=== PATIENT | male | born 1950 | race Caucasian/White ===

== ENCOUNTER 2017-05-19 10:49 | Day surgery (SDC) | payer MEDICARE, OTHER ==
[~2017-05-19 10:49] MED LIST: RINGER'S SOLUTION,LACTATED 1,000 ML IV PRN; ceFAZolin SODIUM 2 GM in DEXTROSE 5 % IN WATER 50 ML IV PRN
[2017-05-19] MEDS ORDERED: RINGER'S SOLUTION,LACTATED 1,000 ML IV ONE ×2 (11:35→13:45)
[2017-05-19] MEDS ORDERED: BUPIVACAINE HCL 50 ML VIAL IJ ONE ×2 (12:58)
[2017-05-19 15:39] VITALS: BP 162/75
== END 2017-05-19 10:50 | disposition home or self-care (01) ==
LOC: AMB 10:49
PROVIDERS: ATTEND Urology
PROC: 0VBG0ZZ Excision of Left Spermatic Cord, Open Approach (ICD-10-PCS; principal; 2017-05-19 12:00)
DX: N43.3 Hydrocele, unspecified (principal); R35.1 Nocturia; E66.9 Obesity, unspecified; Z68.28 Body mass index [BMI] 28.0-28.9, adult

== ENCOUNTER 2018-12-28 14:51 | Observation (INO) ==
[2018-12-28 15:34] LABS: Mean Cell Volume 92.4 fl (78-100); Mean Corpuscular Hemoglobin 31.5 pg (27-31); Mean Corpuscular Hgb Conc 34.1 g/dl (32-36); Mean Platelet Volume 10.2 fl (8-11.3); Neutrophil % 65.2 % (42-75.0); Platelet Count 212 K/mm3 (150-450); Red Blood Count 2.51 M/mm3 (4.7-6.0); Red Cell Distribution Width 12.6 % (11.5-14.0); White Blood Count 6.2 K/mm3 (4.0-10.5)
[2018-12-28 15:35] LABS: Hematocrit 23.2 % (42.0-52.0); Hemoglobin 7.9 gm/dL (13.5-18.0)
[2018-12-28] MEDS ORDERED: PANTOPRAZOLE SODIUM 40 MG/100 ML PIGGYBACK IV ONE (15:38)
[2018-12-28 15:54] LABS: Blood Urea Nitrogen 69 mg/dL (6-23); Glucose * 149 mg/dL (70-110)
[2018-12-28 15:55] LABS: ALT 33 U/L (19-67); AST 18 U/L (0-48); Albumin * 3.8 gm/dl (3.4-5.0); Alkaline Phosphatase * 36 U/L (50-170); BNP * 113 pg/mL (5-350); Bilirubin, Total 0.4 mg/dL (0.0-1.1); Ca. Corrected For Albumin 8.8 mg/dL (8.4-10.2); Carbon Dioxide 25.1 mmol/L (24-32.6); Chloride 97 mmol/L (97-106); Potassium 4.1 mmol/L (3.4-4.6); Sodium 132 mmol/L (132-142); Total Protein 6.3 gm/dL (6.2-8.2); Troponin I Less than 0.017 ng/mL (0.00-0.10)
[2018-12-28] MEDS ORDERED: NORMAL SALINE 1,000 ML IV ONE (15:56)
[2018-12-28 16:07] LABS: Prothrombin Time (Patient) 10.7 Seconds (9.1-10.7)
[2018-12-28 16:10] LABS: INR 1.08 INR (0.92-1.08); Partial Thrombolplastin Time 24.7 Seconds (24-32)
--- NOTE | 2018-12-28 16:19 | ERNOTE ---
Dyspnea - Date Date of Service: 12/28/18 - General Presenting Symptoms: shortness of breath Time Seen by Provider: 12/28/18 15:10 Source: patient Exam Limitations: no limitations - Immun/Allergies/Home Medications Immunizations: IMMUNIZATION HX Immunizations Up to Date Yes History of Influenza Vaccine Yes Hx Pneumococcal Vaccination Yes Allergies/Adverse Reactions: Allergies Penicillins Allergy (Mild, Verified 05/19/17 11:17) Hives Home Medications: HOME MEDICATIONS Aspirin [Aspirin Enteric Coated] 81 mg PO DAILY 05/18/17 [Last Taken Unknown] Atenolol [Tenormin] 50 mg PO QPM 05/18/17 [Last Taken Unknown] Atenolol [Tenormin] 150 mg PO QAM 05/18/17 [Last Taken 05/19/17 08:00] Simvastatin [Zocor] 20 mg PO HS 05/18/17 [Last Taken Unknown] oxyCODONE HCL/ACETAMINOPHEN [Percocet 5 MG/325 MG] 1 - 2 tab PO Q4H PRN 05/18/17 [Last Taken Unknown] Lisinopril [Prinivil] 20 mg PO DAILY 12/28/18 [Last Taken Unknown] - History of Present Illness Narrative: Patient presents to the ED with progressive fatigue, neck pain into the jaw with exertion, SOB with exertion and generalized weakness with exertion. No Sx with rest. No fever. Black stool has been noted. No vomiting of blood. Has not seen anyone else for this. No active chest pain. No fever. No abdominal pain. No calf pain or leg swelling. Severity: moderate Treatment MDS RN: none Initiating event: Reports: none Frequency of episodes: Reports: no prior episodes Modifying Factors - (Improves): Reports: rest Modifying Factors (Worsens): Reports: other - exertion Associated Symptoms-Dyspnea: Reports: dizziness. Denies: fever/chills, wheezing Prior Treatment: Denies: recently seen Review of Systems - Review of Systems Constitutional: Absent: fever EYE: Present: no symptoms reported ENT: Absent: sore throat Respiratory: Present: shortness of breath Cardiology: Present: chest pain Gastrointestinal/Abdominal: Absent: abdominal pain Musculoskeletal: Present: back pain Skin: Absent: rash Neurological: Absent: numbness, tingling All Other Systems: All systems neg except as marked Medical History (Updated 12/28/18 @ 15:06 by Harsha To RN) BPH (benign prostatic hyperplasia) HLD (hyperlipidemia) HTN (hypertension) Surgical History: Surgical History (Updated 12/28/18 @ 15:07 by Harsha To RN) History of hip replacement Hx of heart artery stent Social History: Preferred Language Citizen Of [place] Smoking Status Never smoker Have you smoked in the past 12 No months Do you dip or chew tobacco No Abuse History No History of abuse Psych History No pertinent hx Alcohol Use occasionally Drug Use none No Social History Section defined Physical Exam - Physical Exam General Appearance: Present: alert, no apparent distress Head Exam: Present: normal inspection, no evidence of injury Eye Exam: Normal inspection: bilateral, PERRL: bilateral Ears, Nose, Throat: Present: normal ENT inspection Neck: Present: normal inspection Respiratory: Present: no respiratory distress, normal breath sounds, no accessory muscle use, lungs clear Cardiovascular/Chest: Present: regular rate, rhythm, normal peripheral pulses Gastrointestinal/Abdominal: Present: normal bowel sounds, nontender, nondistended, soft Rectal Exam: Present: other - giaiac positive stool Back Exam: Present: normal range of motion Extremity Exam: Present: normal inspection, no edema Neurological Exam: Present: alert, no motor/sensory deficits, building economist II-XII nml as tested Skin Exam: Present: normal color, warm/dry Progress - Results and Orders Patient's Lab Results:: I have reviewed the patient's lab results. - Vital Signs Patient's Vital Signs:: I have reviewed the patient's vital signs. Vital Signs: Vital Signs 12/28/18 14:53 12/28/18 15:32 12/28/18 15:53 Temperature 36.7 C Pulse Rate 85 85 78 Respiratory Rate 16 12 Blood Pressure 125/46 O2 Sat by Pulse Oximetry 98 98 - EKG EKG #1 EKG: NSR EKG read: Interp. by me EKG Comments: NSR rate 85. Non-specific, No STEMI noted. - X-Ray X-Ray #1 X-Ray: chest Interpretation: Interp. by me X-ray Comments: I reviewed official radiology report - Progress/Reassessment Chief Complaint: Dyspnea Progress Note-Subjective: 12/28/18 16:17 IV placed. Patient has symptoms c/w symptomatic anemia. Likely GI bleeding from stomach. 1st U PRBCs ordered. Protonix given. D/W Dr Peng and Dr Rainey. patient will be seen in ED by Gen Surg and admitted by Dr Castillo. I discussed this at length with the patient and questions answered. Departure Clinical Impression: Symptomatic anemia, GI bleeding - Departure Disposition: Still a patient Condition: Stable
--- NOTE | 2018-12-28 17:48 | CONS ---
[facility] - General Date of Service: 12/28/18 Narrative: GI bleed Source: patient, family Exam Limitations: no limitations - History of Present Illness Initial Comments: Justin is a pleasant 68-year-old gentleman who first noticed dark stools on Monday. He then had an even larger dark stool. He denies stomach pain. He has had some back pain. He takes a baby aspirin daily. He had a heart attack with stents placed when he was 54 years old. He has never had an EGD. He has never had ulcers. He denies nausea or vomiting. He believes he had a colonoscopy within the last 2 years and [facility]. He denies a family history of colon cancer. Timing/Duration: changing over time Severity: moderate Modifying Factors - (Worsens): Reports: other - None Modifying Factors - (Improves): Reports: other - None Associated Symptoms: malaise, shortness of breath, weakness Allergies/Adverse Reactions: Allergies Penicillins Allergy (Mild, Verified 12/28/18 17:33) Hives Home Medications: Home Medications Medication Instructions Recorded Last Taken Aspirin [Aspirin Enteric Coated] 81 mg PO DAILY 05/18/17 Unknown Atenolol [Tenormin] 50 mg PO QPM 05/18/17 Unknown Atenolol [Tenormin] 100 mg PO QAM 05/18/17 05/19/17 08:00 Simvastatin [Zocor] 20 mg PO HS 05/18/17 Unknown Lisinopril [Prinivil] 20 mg PO DAILY 12/28/18 Unknown Procedures Excision of Left Spermatic Cord, Open Approach (05/19/17) Review of Systems - Review of Systems Generalized/Overall Review: Present: Weakness, Malaise EENTM: Present: No Symptoms Reported Respiratory: Present: Shortness of Breath Cardiac: Present: No Symptoms Reported Abdominal: Present: Melena Genitourinary: Present: No Symptoms Reported Musculoskeletal: Present: Back Pain Neurological: Present: No Symptoms Reported Skin: Present: No Symptoms Reported Endocrine: Present: No Symptoms Reported Physical Examination - Exam Vital Signs: Vital Signs - Last Taken Temp 36.9 C 12/28/18 17:27 Pulse 69 12/28/18 17:27 Resp 16 12/28/18 17:27 BP 142/49 12/28/18 17:27 Pulse Ox 99 12/28/18 17:27 O2 Oxygen Delivery Method Room Air Constitutional: Present: Alert, Oriented x3, Cooperative ENT Exam: Present: hearing grossly normal Eye Exam: bilateral eye: normal inspection Neck: Present: supple Breasts: Present: Exam deferred Respiratory: Present: chest non-tender, lungs clear, normal breath sounds Cardiovascular/Chest: Present: regular rate, rhythm Abdomen: Present: Normal bowel sounds, soft, nontender /Rectal: Present: Exam deferred Extremity: Present: normal range of motion Skin Exam: Present: normal color Lymphatic: Present: no adenopathy Neurologic: Present: synchronous motor assembler II-XII nml as tested Appearance: Present: appropriate appearance Eye contact: Present: cooperative, good eye contact Thoughts: Present: normal thought pattern - Results and Findings: Lab/Microbiology results last 24 hrs: Abnormal/Pending Laboratory Last 24 HRS 12/28/18 12/28/18 12/28/18 15:45 15:42 15:26 RBC Hgb Hct MCH Lymphocytes # Anion Gap 14.0 H BUN 69 H Creatinine 1.77 H Est GFR (Non-Af Amer) 41 L BUN/Creatinine Ratio 39.0 H Random Glucose 149 H Alkaline Phosphatase 36 L Stool Occult Blood Positive H Crossmatch See Detail 12/28/18 15:26 RBC 2.51 L Hgb 7.9 L* Hct 23.2 L* MCH 31.5 H Lymphocytes # 1.44 L Anion Gap BUN Creatinine Est GFR (Non-Af Amer) BUN/Creatinine Ratio Random Glucose Alkaline Phosphatase Stool Occult Blood Crossmatch - Assessments/Findings (1) GI bleeding Problem: Acute (2) Symptomatic anemia Problem: Acute Plan - Plan Plan: We will plan to do an EGD tomorrow morning to evaluate. I discussed the case with Dr. Rainey. The patient is also in agreement. production support supervisor was notified and we will plan for 9:30 in the morning. Risks and benefits of the procedure were discussed with the patient and he would like to proceed. He will also be started on Protonix.
--- NOTE | 2018-12-28 18:18 | HP ---
Chief Complaint - Chief Complaint Date of Service: 12/28/18 Time of Service: 18:01 Chief Complaint: SOB, tarry stools History of Present Illness: 68-year-old male presented to the ER with 4 days worsening shortness of breath, chest pain, black tarry stools. He was found to be anemic with a hemoglobin of 7.9 and hematocrit of 23.2. He has no history of anemia. He has no history of previous GI bleed. He has recent colonoscopy few years ago where he had a couple polyps taken out but states that it was otherwise normal and he was told to have a repeat colonoscopy in a " couple years". He states that he has had black tarry stools for the last few days, with the worst one being this morning where it was large and very loose. Patient states he normally can walk a mile with minimal discomfort in his lower extremities from peripheral arterial disease but states over the last couple of days he can walk no more than 10-15 steps before he has to stop and catch his breath. Chest pain starts after activity, he has none at rest. He had a negative cardiac work-up in the ER with negative troponins and normal EKG. Patient has a history of hypertension and hyperlipidemia. Medical History (Updated 12/28/18 @ 17:33 by Delia Fleming RN) BPH (benign prostatic hyperplasia) HLD (hyperlipidemia) HTN (hypertension) Testicular cyst removed Surgical History: Surgical History (Updated 12/28/18 @ 15:07 by Harsha To RN) History of hip replacement Hx of heart artery stent Family History: Family History (Last Reviewed 12/28/18 @ 17:34 by Delia Fleming RN) Father PAD (peripheral artery disease) Heart disease Social History: Patient Lives/Resources With Spouse Utilized Occupation retired Preferred Language Wol[place] Do you have any yazidism or Yes: Prestbyterian cultural preference? Smoking Status Former smoker Have you smoked in the past 12 No months Do you dip or chew tobacco No Abuse History No History of abuse Psych History No pertinent hx Alcohol Use occasionally Drug Use none No Social History Section defined Review Of Systems (GEN) - Review of Systems Generalized/Overall Review: Present: Fatigue. Absent: Chills, Fever EENTM: Present: No Symptoms Reported Respiratory: Present: Shortness of Breath. Absent: Cough, Wheezing Cardiac: Present: Chest Pain - With activity. Absent: Edema, Palpitations Abdominal: Present: Melena. Absent: Nausea, Vomiting Genitourinary: Present: No Symptoms Reported Musculoskeletal: Present: Back Pain Neurological: Present: No Symptoms Reported Skin: Present: No Symptoms Reported Endocrine: Present: No Symptoms Reported Immunizations: IMMUNIZATION HX Immunizations Up to Date Yes History of Influenza Vaccine Yes Hx Pneumococcal Vaccination Yes Allergies/Adverse Reactions: Allergies Allergy/AdvReac Type Severity Reaction Status Date / Time Penicillins Allergy Mild Hives Verified 12/28/18 17:33 Home Medications: HOME MEDICATIONS Aspirin [Aspirin Enteric Coated] 81 mg PO DAILY 05/18/17 [Last Taken Unknown] Atenolol [Tenormin] 50 mg PO QPM 05/18/17 [Last Taken Unknown] Atenolol [Tenormin] 100 mg PO QAM 05/18/17 [Last Taken 05/19/17 08:00] Simvastatin [Zocor] 20 mg PO HS 05/18/17 [Last Taken Unknown] Lisinopril [Prinivil] 20 mg PO DAILY 12/28/18 [Last Taken Unknown] Exam - Exam Vital Signs: Vital Signs - Last Taken Temp 36.8 C 12/28/18 17:36 Pulse 66 12/28/18 17:36 Resp 16 12/28/18 17:36 BP 158/62 H 12/28/18 17:36 Pulse Ox 100 12/28/18 17:36 Constitutional: Present: Alert, Oriented x3, Cooperative, Well developed, No distress ENT Exam: Present: hearing grossly normal. Absent: nasal congestion, nasal drainage Eye Exam: bilateral eye: normal inspection Neck: Present: full range of motion, supple Back Exam: Present: muscle spasm Respiratory: Present: lungs clear, no respiratory distress Cardiovascular/Chest: Present: normal peripheral pulses, regular rate, rhythm, no edema Abdomen: Present: Normal bowel sounds, soft, nontender, nondistended /Rectal: Present: Exam deferred Skin Exam: Present: normal color, warm/dry Neurologic: Present: alert, oriented x 3. Absent: dizzy/light-headedness Appearance: Present: appropriate appearance, appropriate insight Eye contact: Present: cooperative, good eye contact Thoughts: Present: normal thought pattern, normal mood /affect Diagnostic Studies: Abnormal Lab Results 12/28/18 12/28/18 12/28/18 Range/Units 15:26 15:26 15:42 RBC 2.51 L (4.7-6.0) M/mm3 Hgb 7.9 L* (13.5-18.0) gm/dL Hct 23.2 L* (42.0-52.0) % MCH 31.5 H (27-31) pg Lymphocytes # 1.44 L (1.5-3.5) k/mm3 Anion Gap 14.0 H (6.8-13.8) mmol/L BUN 69 H (6-23) mg/dL Creatinine 1.77 H (0.4-1.4) mg/dL Est GFR (Non-Af Amer) 41 L (60-130) mL/min BUN/Creatinine Ratio 39.0 H (9.0-21.6) Random Glucose 149 H (70-110) mg/dL Alkaline Phosphatase 36 L (50-170) U/L Stool Occult Blood Positive H Crossmatch 12/28/18 Range/Units 15:45 RBC (4.7-6.0) M/mm3 Hgb (13.5-18.0) gm/dL Hct (42.0-52.0) % MCH (27-31) pg Lymphocytes # (1.5-3.5) k/mm3 Anion Gap (6.8-13.8) mmol/L BUN (6-23) mg/dL Creatinine (0.4-1.4) mg/dL Est GFR (Non-Af Amer) (60-130) mL/min BUN/Creatinine Ratio (9.0-21.6) Random Glucose (70-110) mg/dL Alkaline Phosphatase (50-170) U/L Stool Occult Blood Crossmatch See Detail Laboratory Results WBC 6.2 K/mm3 (4.0-10.5) 12/28/18 15:26 RBC 2.51 M/mm3 (4.7-6.0) L 12/28/18 15:26 Hgb 7.9 gm/dL (13.5-18.0) L* 12/28/18 15:26 Hct 23.2 % (42.0-52.0) L* 12/28/18 15:26 MCV 92.4 fl (78-100) 12/28/18 15:26 MCH 31.5 pg (27-31) H 12/28/18 15:26 MCHC 34.1 g/dl (32-36) 12/28/18 15: RDW 12.6 % (11.5-14.0) 12/28/18 15: Plt Count 212 K/mm3 (150-450) 12/28/18 15: MPV 10.2 fl (8-11.3) 12/28/18 15: Immature Gran % (Auto) 0.30 % (0.001-0.429) 12/28/18 15: Immature Gran # (Auto) 0.02 K/mm3 (0.000-0.0310) 12/28/18 15: 65.2 % (42-75.0) 12/28/18 15: 23.4 % (20-51) 12/28/18 15: 8.5 % (0.0-9) 12/28/18 15: 2.1 % (0.0-3.0) 12/28/18: 0.5 % (0.0-1.0) 12/28/18: Nucleated RBC % 0.0 k/mm3 (0-1) 12/28/18 15: 4.0 K/mm3 (1.3-6.0) 12/28/18 15: 1.44 k/mm3 (1.5-3.5) L 12/28/18 15: 0.5 k/mm3 (0.0-1.0) 12/28/18: 0.1 k/mm3 (0.0-0.7) 12/28/18: Absolute Basophils 0.0 k/mm3 (0.0-0.1) 12/28/18 15: PT 10.7 Seconds (9.1-10.7) 12/28/18 15: INR (Anticoag Therapy) 1.08 INR (0.92-1.08) 12/28/18: PTT (Kim) 24.7 Seconds (24-32) 12/28/18 15: Sodium 132 mmol/L (132-142) 12/28/18 15: 133 mmol/L (130-142) 12/28/18 15: Potassium 4.1 mmol/L (3.4-4.6) 12/28/18 15:26 Chloride 97 mmol/L (97-106) 12/28/18 15:26 Carbon Dioxide 25.1 mmol/L (24-32.6) 12/28/18 15:26 14.0 mmol/L (6.8-13.8) H 12/28/18 15:26 BUN 69 mg/dL (6-23) H 12/28/18 15:26 1.77 mg/dL (0.4-1.4) H 12/28/18 15:26 Est GFR (Non-Af Amer) 41 mL/min (60-130) L 12/28/18 15:26 39.0 (9.0-21.6) H 12/28/18 15:26 149 mg/dL (70-110) H 12/28/18 15:26 Calcium 9.0 mg/dL (7.9-10.9) 12/28/18 15:26 Calcium Adj for Albumin 8.8 mg/dL (8.4-10.2) 12/28/18 15:26 0.4 mg/dL (0.0-1.1) 12/28/18 15:26 AST 18 U/L (0-48) 12/28/18 15:26 ALT 33 U/L (19-67) 12/28/18 15:26 36 U/L (50-170) L 12/28/18 15:26 Less than 0.017 ng/mL (0.00-0.10) 12/28/18 15:26 B-Natriuretic Peptide 113 pg/mL (5-350) 12/28/18 15:26 6.3 gm/dL (6.2-8.2) 12/28/18 15:26 3.8 gm/dl (3.4-5.0) 12/28/18 15:26 Positive H 12/28/18 15:42 Blood Type A Positive 12/28/18 15:45 Antibody Screen Negative 12/28/18 15:45 Crossmatch See Detail 12/28/18 15:45 Assessment/Plan - Narrative Narrative: Patient brought in in observation for upper GI bleed. Dr. Garcia was consulted from the ER, her plan is to perform EGD tomorrow morning. Patient currently n.p.o. other than sips and chips in a.m. meds. We will start him on Protonix. Patient currently being transfused with a unit of blood, repeat H&H 2 hours posttransfusion. Currently blood pressure and heart rate are within normal limits. Continue blood pressure meds in the a.m. if blood pressure still stable. Nurse will call with any questions or concerns - Assessment/Plan (1) Upper GI bleed Problem: Acute (2) Hypertension Problem: Acute (3) Hyperlipidemia Problem: Acute (4) Symptomatic anemia Problem: Acute
[2018-12-28] MEDS ORDERED: PANTOPRAZOLE SODIUM 40 MG in NORMAL SALINE 100 ML IV SCH (18:45)
[2018-12-29] MEDS: PANTOPRAZOLE SODIUM 40 MG in NORMAL SALINE 100 ML IV SCH ×2 (05:42→17:37)
[2018-12-29 06:18] LABS: Mean Cell Volume 93.1 fl (78-100); Mean Corpuscular Hemoglobin 32.1 pg (27-31); Mean Corpuscular Hgb Conc 34.5 g/dl (32-36); Mean Platelet Volume 9.6 fl (8-11.3); Neutrophil # 2.2 K/mm3 (1.3-6.0); Neutrophil % 51.1 % (42-75.0); Platelet Count 147 K/mm3 (150-450); Red Blood Count 2.46 M/mm3 (4.7-6.0); Red Cell Distribution Width 13.1 % (11.5-14.0); White Blood Count 4.2 K/mm3 (4.0-10.5)
[2018-12-29 06:36] LABS: Hemoglobin 7.9 gm/dL (13.5-18.0)
[2018-12-29 06:37] LABS: Hematocrit 22.9 % (42.0-52.0)
[2018-12-29] MEDS: ATENOLOL 100 MG TABLET PO SCH ×2 (07:50→09:43)
--- NOTE | 2018-12-29 07:50 | ANES ---
Anesthesia Pre Procedure Eval Vitals/Labs: Last Vital Signs Temp 36.0 C 12/29/18 07:48 Pulse 69 12/29/18 06:28 Resp 18 12/29/18 06:28 BP 131/49 12/29/18 06:28 Pulse Ox 95 12/29/18 06:28 HOME MEDICATIONS Aspirin [Aspirin Enteric Coated] 81 mg PO DAILY 05/18/17 [Last Taken Unknown] Atenolol [Tenormin] 50 mg PO QPM 05/18/17 [Last Taken Unknown] Atenolol [Tenormin] 100 mg PO QAM 05/18/17 [Last Taken 05/19/17 08:00] Simvastatin [Zocor] 20 mg PO HS 05/18/17 [Last Taken Unknown] Lisinopril [Prinivil] 20 mg PO DAILY 12/28/18 [Last Taken Unknown] Allergies/Adverse Reactions: Allergies Allergy/AdvReac Type Severity Reaction Status Date / Time Penicillins Allergy Mild Hives Verified 12/28/18 17:33 - Planned Procedure Planned Procedure: EGD Medication List Reviewed:: Yes Allergies Verified: Yes Medical History (Updated 12/29/18 @ 07:49 by Volodymyr Stoll CRNA) BPH (benign prostatic hyperplasia) CAD (coronary artery disease) HLD (hyperlipidemia) HTN (hypertension) Testicular cyst removed Surgical History (Updated 12/28/18 @ 15:07 by Harsha To RN) History of hip replacement Hx of heart artery stent Family History (Last Reviewed 12/29/18 @ 07:48 by Volodymyr Stoll CRNA) Father PAD (peripheral artery disease) Heart disease - Family Anesthesia History Family History:: no untoward family reactions to anesthesia, no familial bleeding tendencies, no family history of clotting disorders, no family history of premature - Airway/Neck/Teeth Within Normal Limits:: Yes Teeth Condition: intact Denture Type: Full upper, Full lower Mallampatti Score: 1 Thyromental (T-M) distance: > 6 cm Mandibulo Hyoid distance: > 3 cm - Respiratory Respiratory Physical: lungs clear Smoking Status: Former smoker Discussed smoking cessation including day of surgery: No Sleep Apnea currently treated: No Sleep Apnea by current assessment: No Discussed Risks/Treatment of DAMASO: No - Cardiovascular Tolerate Activity: Fair Heart Sounds: S1 & S2, Regular - Anesthesia Assessment and Plan ASA Class: PS, III Anesthesia Type Plan: MAC
[2018-12-29] MEDS ORDERED: RINGER'S SOLUTION,LACTATED 1,000 ML IV ONE (10:00)
--- NOTE | 2018-12-29 10:29 | ANES ---
Post Anesthesia Discharge - Transfer of Care Transfer of Care handoff given to nurse: Yes - Discharge from PACU Discharge from PACU when meets criteria: Yes - Discharge to ASU Discharge to ASU-no complications/pt stable: Yes
--- NOTE | 2018-12-29 10:30 | ANES ---
Post Anesthesia Assessment - Vital Signs Vitals: Last Vital Signs Temp 35.9 C L 12/29/18 10:23 Pulse 74 12/29/18 10:23 Resp 16 12/29/18 10:23 BP 122/67 12/29/18 10:23 Pulse Ox 97 12/29/18 10:23 Airway Patency: Normal - Mental Status Level Of Consciousness: Awake - Pain Level Pain Score: 0 - N/V Assessment Nausea/Vomiting Presence: None Dehydration:: No
--- NOTE | 2018-12-29 10:36 | OR ---
Operative Report - Dictated Report Narrative: Date of Service: 12/29/18 Procedure: EGD with biopsy, and endoscopic clipping Pre-procedure diagnosis: GI bleeding Post-procedure diagnosis: Duodenal ulcer, Schatzki ring Surgeon: Dr. Geneva Peng Anesthesia: MAC Indication for procedure: Justin is a pleasant 68-year-old gentleman who has a GI bleed. He has had melena and anemia. Description of procedure: After appropriate informed consent was obtained, patient was taken to the endoscopy suite placed in the left lateral decubitus position. Monitors were applied, appropriate sedation was achieved. A lubricated gastroscope was inserted and advanced into the second portion of the duodenum. The scope was slowly withdrawn, the duodenum showed an ulcer as well as duodenitis. The ulcer base was approximately 4 mm in size. There was no visible vessel. 2 clips were placed on the ulcer. There was no bleeding, for her after the clip placement. The scope was withdrawn to the antrum. An antral biopsy was taken. A biopsy for Amber was also taken. The scope was retroflexed, the stomach appeared normal. The body of the stomach also appeared normal. Scope was slowly withdrawn to the GE junction, the Z line appeared normal. At 38 cm a Schatzki's ring was present which was wide mouthed. The excess air was suctioned and the scope was slowly removed. Complications: none Specimens to pathology: antral biopsy, Amber Estimated blood loss: minimal Disposition: He should continue on Protonix, avoid NSAIDs, and go slow with his diet. If he has trouble with dysphagia in the future we could dilate his Schatzki's ring, but it appeared to be wide mouthed.
[2018-12-29] MEDS: LISINOPRIL 20 MG TABLET PO SCH (10:49)
--- NOTE | 2018-12-29 12:38 | PN ---
Subjective - Date and Time Seen Date: 12/29/18 Time: 12:46 Subjective Narrative: Patient did well overnight. No acute events. Patient states he feels better, denies dizziness or shortness of breath. Hemogram came back with a hemoglobin of 7.9 and hematocrit of 22.9. Otherwise his vitals been stable. Plan is for EGD this morning with Dr. Peng Objective - Review of Systems Generalized/Overall Review: Denies: Weakness, Chills, Fever EENTM: Reports: No Symptoms Reported Respiratory: Reports: No Symptoms Reported Cardiac: Reports: No Symptoms Reported Abdominal: Denies: Abdominal Pain, Diarrhea, Melena, Bright blood from rectum Genitourinary Symptoms: Reports: No Symptoms Reported Musculoskeletal Complaints: Reports: No Symptoms Reported Neurological: Reports: No Symptoms Reported Skin: Reports: No Symptoms Reported Endocrine: Reports: No Symptoms Reported - Vitals Vitals: Last Vital Signs Temp 35.9 C L 12/29/18 10:23 Pulse 65 12/29/18 10:49 Resp 16 12/29/18 10:23 BP 137/63 12/29/18 10:49 Pulse Ox 97 12/29/18 10:23 - Abnormal Lab Findings Abnormal Lab Findings: Abnormal Lab Results 12/28/18 12/28/18 12/28/18 Range/Units 15:26 15:26 15:42 RBC 2.51 L (4.7-6.0) M/mm3 Hgb 7.9 L* (13.5-18.0) gm/dL Hct 23.2 L* (42.0-52.0) % MCH 31.5 H (27-31) pg Plt Count (150-450) K/mm3 Monocytes % (0.0-9) % Eosinophils % (0.0-3.0) % Lymphocytes # 1.44 L (1.5-3.5) k/mm3 Anion Gap 14.0 H (6.8-13.8) mmol/L BUN 69 H (6-23) mg/dL Creatinine 1.77 H (0.4-1.4) mg/dL Est GFR (Non-Af Amer) 41 L (60-130) mL/min BUN/Creatinine Ratio 39.0 H (9.0-21.6) Random Glucose 149 H (70-110) mg/dL Alkaline Phosphatase 36 L (50-170) U/L Stool Occult Blood Positive H Crossmatch 12/28/18 12/29/18 Range/Units 15:45 06:00 RBC 2.46 L (4.7-6.0) M/mm3 Hgb 7.9 L* (13.5-18.0) gm/dL Hct 22.9 L* (42.0-52.0) % MCH 32.1 H (27-31) pg Plt Count 147 L (150-450) K/mm3 Monocytes % 9.5 H (0.0-9) % Eosinophils % 3.3 H (0.0-3.0) % Lymphocytes # 1.48 L (1.5-3.5) k/mm3 Anion Gap (6.8-13.8) mmol/L BUN (6-23) mg/dL Creatinine (0.4-1.4) mg/dL Est GFR (Non-Af Amer) (60-130) mL/min BUN/Creatinine Ratio (9.0-21.6) Random Glucose (70-110) mg/dL Alkaline Phosphatase (50-170) U/L Stool Occult Blood Crossmatch See Detail - Exam Constitutional: Present: Alert, Oriented x3, Cooperative, Well developed ENT Exam: Present: hearing grossly normal. Absent: nasal congestion, nasal drainage Neck: Present: non-tender, supple Respiratory: Present: lungs clear, normal breath sounds Cardiovascular/Chest: Present: regular rate, rhythm, no murmur Abdomen: Present: Normal bowel sounds, soft, nontender /Rectal: Present: Exam deferred Skin Exam: Present: normal color, warm/dry Neurologic: Present: alert, oriented x 3. Absent: dizzy/light-headedness Appearance: Present: appropriate appearance, appropriate insight Eye contact: Present: cooperative, good eye contact Thoughts: Present: normal thought pattern, normal mood /affect Assessment/Plan Plan Narrative: Vital signs stable. Hemoglobin low again this morning, will transfuse 1 unit. Plan for EGD later this morning with Dr. Peng to evaluate for upper GI bleed. Overall patient clinically stable, vital signs stable. Awaiting Dr. Peng's recommendations following procedure. - Problems/Diagnosis (1) Upper GI bleed Problem: Acute (2) Hypertension Problem: Acute (3) Hyperlipidemia Problem: Acute (4) Symptomatic anemia Problem: Acute
[2018-12-29 12:55] LABS: Hemoglobin 9.1 gm/dL (13.5-18.0); Mean Cell Volume 93.1 fl (78-100); Mean Corpuscular Hemoglobin 31.4 pg (27-31); Mean Corpuscular Hgb Conc 33.7 g/dl (32-36); Mean Platelet Volume 9.4 fl (8-11.3); Platelet Count 168 K/mm3 (150-450); Red Cell Distribution Width 14.1 % (11.5-14.0); White Blood Count 5.1 K/mm3 (4.0-10.5)
[2018-12-29] MEDS ORDERED: ATENOLOL 50 MG TABLET PO SCH (17:00)
[2018-12-30] MEDS: PANTOPRAZOLE SODIUM 40 MG in NORMAL SALINE 100 ML IV SCH (07:22)
[2018-12-30] MEDS: LISINOPRIL 20 MG TABLET PO SCH (08:58)
[2018-12-30] MEDS: ATENOLOL 100 MG TABLET PO SCH (08:58)
--- NOTE | 2018-12-30 09:44 | PN ---
Dictated Progress Note - Date and Time Seen: Date: 12/30/18 Time: 09:42 - Progress Note Narrative: Doing well, no abdominal pain, no bowel movement. No nausea or vomiting. Tolerating clears. Vital Signs - Last Taken Temp 37.0 C 12/30/18 06:58 Pulse 74 12/30/18 08:58 Resp 16 12/30/18 06:58 BP 137/60 12/30/18 08:58 Pulse Ox 97 12/30/18 06:58 Abnormal/Pending Laboratory Last 24 HRS 12/30/18 12/29/18 12/28/18 07:10 12:50 15:45 RBC 2.90 L Hgb 8.8 L 9.1 L Hct 27.0 L MCH 31.4 H RDW 14.1 H Crossmatch See Detail Nonlabored respirations Abdomen is soft, nondistended, nontender No acute distress, alert and oriented 3 Imp: Duodenal ulcer status post clipping Anemia Weakness Plan: Gradually advance diet and avoid hard foods Avoid NSAIDs and continue Protonix Thank you for allowing me to participate in the care of your patient Dr. Rainey
--- NOTE | 2018-12-30 12:04 | DS ---
(1) Upper GI bleed Problem: Resolved (2) Hypertension Problem: Chronic (3) Hyperlipidemia Problem: Chronic (4) Symptomatic anemia Problem: Acute Description of Stay: 68-year-old male brought to the ER following 3 days of black tarry stools, shortness of breath/dizziness, fatigue. Patient initial hemoglobin was 7.9. Dr. Peng of general surgery was consulted, she took him back day 2 of admission for EGD where she found a duodenal ulcer and clipped it. Hemoglobin since has remained stable, day of discharge was 8.8. Patient states he is feeling much better and is ready to be discharged home. His chronic medicines were continued, no changes made to them. His vital signs been stable including normal blood pressure, normal pulse, normal O2 sats. He will be sent home on Protonix for a month and advised to not eat anything rough that may dislodge the clips for the next week or 2. He is in agreement with the treatment plan, he will follow-up with me in 1 to 2 weeks here in the clinic. He knows to return back to the hospital if he develops any more dark stools or become symptomatically again. Procedures Performed: see notes below List Procedures: EGD with surgical clips placed on duodenal ulcer Results and Findings: Lab Pending Results 12/28/18 15:26: WBC 6.2, RBC 2.51 L, Hgb 7.9 L*, Hct 23.2 L*, MCV 92.4, MCH 31.5 H, MCHC 34.1, RDW 12.6, Plt Count 212, MPV 10.2, Immature Gran % (Auto) 0.30, Immature Gran # (Auto) 0.02, Neutrophils % 65.2, Lymphocytes % 23.4, Monocytes % 8.5, Eosinophils % 2.1, Basophils % 0.5, Nucleated RBC % 0.0, Neutrophils # 4.0, Lymphocytes # 1.44 L, Monocytes # 0.5, Eosinophils # 0.1, Absolute Basophils 0.0 12/28/18 15:26: Sodium 132, Plasma Sodium 133, Potassium 4.1, Chloride 97, Carbon Dioxide 25.1, Anion Gap 14.0 H, BUN 69 H, Creatinine 1.77 H, Est GFR (Non-Af Amer) 41 L, BUN/Creatinine Ratio 39.0 H, Random Glucose 149 H, Calcium 9.0, Calcium Adj for Albumin 8.8, Total Bilirubin 0.4, AST 18, ALT 33, Alkaline Phosphatase 36 L, Troponin I Less than 0.017, B-Natriuretic Peptide 113, Total Protein 6.3, Albumin 3.8 12/28/18 15:26: PT 10.7, INR (Anticoag Therapy) 1.08, PTT ([place]) 24.7 12/28/18 15:42: Stool Occult Blood Positive H 12/28/18 15:45: Blood Type A Positive, Antibody Screen Negative, Crossmatch See Detail 12/29/18 06:00: WBC 4.2 D, RBC 2.46 L, Hgb 7.9 L*, Hct 22.9 L*, MCV 93.1, MCH 32.1 H, MCHC 34.5, RDW 13.1, Plt Count 147 L, MPV 9.6, Immature Gran % (Auto) 0.20, Immature Gran # (Auto) 0.01, Neutrophils % 51.1, Lymphocytes % 35.2, Monocytes % 9.5 H, Eosinophils % 3.3 H, Basophils % 0.7, Nucleated RBC % 0.0, Neutrophils # 2.2, Lymphocytes # 1.48 L, Monocytes # 0.4, Eosinophils # 0.1, Absolute Basophils 0.0 12/29/18 12:50: WBC 5.1 D, RBC 2.90 L, Hgb 9.1 L, Hct 27.0 L, MCV 93.1, MCH 31.4 H, MCHC 33.7, RDW 14.1 H, Plt Count 168, MPV 9.4 12/30/18 07:10: Hgb 8.8 L Discharge Location: Home Disposition: Home self-care Condition: Good Discharge Activity: Activity as tolerated Discharge Diet: Low fat/chol Referrals: Ceferino Rainey DO [Staff Physician] - Two Weeks Additional Patient Instructions (free text): He should continue on Protonix, avoid NSAIDs, and go slow with his diet. Prescriptions (Any new or edited meds): Omeprazole 20 mg PO DAILY #30 tab Complete Home Medications List: Complete Home Medication List: Atenolol [Tenormin] 100 mg PO QAM 05/18/17 Simvastatin [Zocor] 20 mg PO HS 10/12/17 Lisinopril [Prinivil] 20 mg PO DAILY 12/28/18 Atenolol [Tenormin] 50 mg PO QPM tablet 12/30/18 Omeprazole 20 mg PO DAILY #30 tab.rap. 12/30/18
[2018-12-30 12:18] VITALS: BP 148/60
== END 2018-12-30 12:45 | disposition home or self-care (01) ==
LOC: MS 14:51 → ER 14:51 → MS 16:44
PROVIDERS: ADMIT Family Medicine; ATTEND Family Medicine
DX: K26.4 Chronic or unspecified duodenal ulcer with hemorrhage; E78.5 Hyperlipidemia, unspecified; D62 Acute posthemorrhagic anemia; I10 Essential (primary) hypertension; Z87.891 Personal history of nicotine dependence; K22.2 Esophageal obstruction; I25.2 Old myocardial infarction; K92.2 Gastrointestinal hemorrhage, unspecified
CPT/HCPCS: 36415; 36430; 71020; 71046; 80053; 82272; 83519; 83880; 84484; 85018; 85025; 85027; 85610; 85730; 86850; 87081; 88305; 88312; 88313; 93005; 96365; 96366; 99285; G0378; P9016

== ENCOUNTER 2019-11-26 08:33 | Inpatient (IN) ==
[2019-11-26] MEDS ORDERED: PANTOPRAZOLE SODIUM 40 MG/100 ML PIGGYBACK IV ONE ×5 (09:06→10:15)
[2019-11-26 09:27] LABS: Hematocrit 28.1 % (42.0-52.0); Hemoglobin 9.2 gm/dL (13.5-18.0); Mean Cell Volume 95.6 fl (78-100); Mean Corpuscular Hemoglobin 31.3 pg (27-31); Mean Corpuscular Hgb Conc 32.7 g/dl (32-36); Mean Platelet Volume 10.1 fl (8-11.3); Neutrophil # 5.2 K/mm3 (1.3-6.0); Neutrophil % 80.1 % (42-75.0); Platelet Count 176 K/mm3 (150-450); Red Blood Count 2.94 M/mm3 (4.7-6.0); Red Cell Distribution Width 14.3 % (11.5-14.0); White Blood Count 6.5 K/mm3 (4.0-10.5)
--- NOTE | 2019-11-26 09:32 | ERNOTE ---
GI Bleeding/Rectal Pain ER Date of Service: 11/26/19 Presenting Symptoms: dark/tarry stools Time Seen by Provider: 11/26/19 08:37 Source: patient Exam Limitations: no limitations Immunizations: IMMUNIZATION HX Immunizations Up to Date Yes History of Influenza Vaccine Yes Hx Pneumococcal Vaccination Yes Allergies/Adverse Reactions: Allergies Penicillins Allergy (Mild, Verified 11/26/19 08:43) Hives Home Medications: HOME MEDICATIONS aspirin 81 mg tablet,delayed release 81 mg PO DAILY 05/27/19 [Last Taken Unknown] diclofenac sodium 1 % topical gel 2 g TP QID #100 g 05/27/19 [Last Taken Unknown] lisinopril 20 mg tablet 20 mg PO DAILY #90 tab 07/22/19 [Last Taken Unknown] simvastatin 20 mg tablet 20 mg PO HS #30 tab 10/15/19 [Last Taken Unknown] meloxicam 15 mg tablet 15 mg PO DAILY #30 tab 10/21/19 [Last Taken Unknown] atenolol 100 mg tablet 150 mg PO .COMPLEX 90 Days #135 tab 11/18/19 [Last Taken Unknown] Narrative: 69-year-old male presents for blood in stool. He reports that he has had black tarry stools for the past 3 to 4 days. Last night he noticed stomach discomfort. The pain was crampy in nature. There is moderate intensity, 7 out of 10. There is no intensifying factors that he noted. The pain was relieved after he had a bowel movement. This morning he noted multiple red tarry/black tarry bowel movements. 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 His pain last night did not radiate anywhere and is constant epigastric pain. He reports his last oral intake was around 11:00pm and consisted of hotdogs and peanut butter crackers. He has a pertinent past medical history of previous ulcers. He was seen approximately 1 year ago had endoscopy done at that time notable for 2 bleeding ulcers which required clipping. He was also noted to have Schatzki rings at that time. He was started on Protonix at that time however this was not continued. He has not had any recent trauma to abdominal cavity. He denies any other symptoms. During this current COVID-19 pandemic, he denies any recent fevers colds coughs congestions recent travels or ill contacts. He denies any current shortness of breath. He was recently started on meloxicam, 15 mg daily for the past month secondary t o left knee pain. He denies any other recent changes in medications. Timing: constant, getting worse Quality/Severity: Present: moderate - Pain is now resolved. Nausea/Vomiting: Present: blood, coffee grounds Abdominal Pain: Present: epigastric Associated Symptoms: Reports: maroon stools, black stools, tarry stools, diarrhea. Denies: constipation/hard stools, back pain, fainting, dizziness, light headedness, rectal pain Review of Systems - Narrative Narrative: REVIEW OF SYSTEMS GENERAL: Negative for any nausea, vomiting, fevers, chills, or weight loss. HEENT: Negative for sore throats, congestion, changes in vision, changes in hearing, CARDIAC: Negative for any chest pain, dyspnea, or palpitations. PULMONARY: Negative for any shortness of breath, cough, or wheezing. GASTROINTESTINAL: Negative for any nausea, vomiting, constipation, positive for blood per stool, diarrhea GENITOURINARY: Negative for any dysuria, changes in urine output. INTEGUMENTARY: Negative for any rashes. NEUROLOGIC: Negative for changes in vision or headaches. RHEUMATOLOGIC: Negative for any joint pains, Medical History (Last Reviewed 11/26/19 @ 09:21 by Alberto Ramos MD) BPH (benign prostatic hyperplasia) CAD (coronary artery disease) HLD (hyperlipidemia) HTN (hypertension) Testicular cyst removed Surgical History: Surgical History (Last Reviewed 11/26/19 @ 09:21 by Alberto Ramos MD) History of hip replacement Hx of heart artery stent Family History: Family History (Last Reviewed 11/26/19 @ 09:21 by Alberto Ramos MD) Father Heart disease PAD (peripheral artery disease) Social History: (Last Reviewed 11/26/19 @ 09:21 by Alberto Ramos MD) Tobacco: Smoking Status: Former smoker Physical Exam - Physical Exam General Appearance: Present: wd/wn, alert, no apparent distress Eye Exam: Normal inspection: bilateral Ears, Nose, Throat: Present: normal ENT inspection Neck: Present: normal inspection Respiratory: Present: no respiratory distress, normal breath sounds Cardiovascular/Chest: Present: regular rate, rhythm, no murmur, normal peripheral pulses Gastrointestinal/Abdominal: Present: normal bowel sounds, nontender, nondistended, soft, no organomegaly Rectal Exam: Present: nontender, normal rectal tone, black stool, blood-streaked stool. Absent: hemorrhoids Extremity Exam: Present: normal inspection, pedal edema - Mild pedal edema on the left lower extremity. Neurological Exam: Present: alert, normal mood/affect Skin Exam: Present: normal color, warm/dry. Absent: cyanosis, pallor Progress - Date and Time Seen: Date and Time: 11/26/19 09:23 69-year-old male with a pertinent past medical history of previous GI bleeds presents with blood per rectum. He reports stomach discomfort yesterday night that is since self resolved. Physical exam was notable for copious amounts of dark red blood per rectum on exam without signs of hemorrhoids. Patient had no physical exam findings suggestive of profound anemia, conjunctive normal in color, vital signs within normal limits, pulse ox variation 98% on room air. Labs pending, will start Protonix, [place] bleeding score pending lab results. Patient will most likely need to be placed in observation for further monitoring and consideration of GI/surgical consult. 11/26/19 11:00 Patient noted to have elevated potassium 5.3. BMP will be repeated, while waiting EKG shows no widening of the QRS, possible slight increased T waves in V2 V3, and he was given albuterol nebulizer treatment. Case was discussed with Dr. Rainey and pt was accepted for further monitoring in observation with telemetry. 11/26/19 11:43 Results of repeat BMP was notable for elevated K of 5.9. The lab draw was done after his albuterol treatment. The results of the lab work returned after Pt had been moved to the Obs unit and was no longer in the ED. I called and discussed the hyperkalemia with Dr Rainey. I shared with Dr Rainey the only treatment he received in the ED was the albuterol. We briefly discussed the EKG findings. We discussed he had not been given kayexalate, calcium, insulin or lasix. Additional treatment was being held until the repeat lab work returned to confirm the findings. This was appropriate given the EKG findings and patients overall stability. Dr Rainey stated he would place orders for further treatment of patients hyperkalemia. 11/26/19 12:03 - Results and Orders Patient's Lab Results:: I have reviewed the patient's lab results. - Vital Signs Patient's Vital Signs:: I have reviewed the patient's vital signs. Vital Signs: Vital Signs 11/26/19 08:38 Temperature 36.7 C Pulse Rate 87 Respiratory Rate 18 O2 Sat by Pulse Oximetry 97 - Progress/Reassessment Chief Complaint: GI Bleed Progress:: Unchanged - Transfer of Care Pending Results: Labs Expected Disposition: Admit Departure Clinical Impression: Hyperkalemia, Acute kidney injury GI bleed Qualifiers: GI bleed type/associated pathology: unspecified gastrointestinal hemorrhage type Qualified Code(s): K92.2 - Gastrointestinal hemorrhage, unspecified - Departure Disposition: Still a patient Condition: Stable
[2019-11-26 09:35] LABS: Prothrombin Time (Patient) 11.4 Seconds (9.1-10.7)
[2019-11-26 09:37] LABS: INR 1.16 INR (0.92-1.08); Partial Thrombolplastin Time 25.3 Seconds (24-32)
[2019-11-26 09:42] LABS: Albumin * 3.4 gm/dl (3.4-5.0); Anion Gap 17.1 mmol/L (6.8-13.8); BUN/Creatinine Ratio 36.1 (9.0-21.6); Bilirubin, Total 0.4 mg/dL (0.0-1.1); Ca. Corrected For Albumin 8.4 mg/dL (8.4-10.2); Calcium * 8.2 mg/dL (7.9-10.9); Carbon Dioxide 23.2 mmol/L (24-32.6); Potassium 5.3 mmol/L (3.4-4.6); Total Protein 6.1 gm/dL (6.2-8.2)
[2019-11-26] MEDS ORDERED: ALBUTEROL SULFATE 2.5 MG/0.5 ML VIAL.NEB IH ONE (10:24)
[2019-11-26 10:53] LABS: Anion Gap 13.8 mmol/L (6.8-13.8); BUN/Creatinine Ratio 41.1 (9.0-21.6); Calcium * 8.2 mg/dL (7.9-10.9); Carbon Dioxide 24.1 mmol/L (24-32.6); Estimated Creat Clear 54.3; Potassium 5.9 mmol/L (3.4-4.6)
[2019-11-26] MEDS ORDERED: DEXTROSE 50%-WATER 50 ML SYRG IV ONE ×2 (13:44→16:58)
[2019-11-26] MEDS ORDERED: INSULIN REGULAR, HUMAN 100 UNITS/ML VIAL IV ONE ×2 (13:49→14:30)
[2019-11-26] MEDS ORDERED: DICLOFENAC SODIUM 100 APPL TUBE TP SCH (17:00)
[2019-11-26 17:07] LABS: Anion Gap 13.5 mmol/L (6.8-13.8); BUN/Creatinine Ratio 38.1 (9.0-21.6); Calcium * 8.1 mg/dL (7.9-10.9); Carbon Dioxide 25.9 mmol/L (24-32.6); Estimated Creat Clear 53.5; Potassium 4.4 mmol/L (3.4-4.6)
[2019-11-26] MEDS ORDERED: DICLOFENAC SODIUM 100 APPL TUBE TP PRN (17:33)
[2019-11-26] MEDS: ATENOLOL 50 MG TABLET PO SCH (17:34)
[2019-11-26 20:35] LABS: Hematocrit 26.9 % (42.0-52.0); Mean Cell Volume 94.4 fl (78-100); Mean Corpuscular Hemoglobin 31.6 pg (27-31); Mean Corpuscular Hgb Conc 33.5 g/dl (32-36); Mean Platelet Volume 10.3 fl (8-11.3); Platelet Count 198 K/mm3 (150-450); Red Blood Count 2.85 M/mm3 (4.7-6.0); Red Cell Distribution Width 14.4 % (11.5-14.0); White Blood Count 7.4 K/mm3 (4.0-10.5)
[2019-11-26] MEDS: SIMVASTATIN 20 MG TABLET PO SCH (20:39)
[2019-11-26] MEDS: LISINOPRIL 20 MG TABLET PO SCH (20:39)
[2019-11-26 20:41] LABS: Anion Gap 15.9 mmol/L (6.8-13.8); Calcium * 8.3 mg/dL (7.9-10.9); Carbon Dioxide 24.3 mmol/L (24-32.6); Estimated Creat Clear 50.6; Potassium 4.2 mmol/L (3.4-4.6)
[2019-11-27 07:01] LABS: Mean Cell Volume 94.5 fl (78-100); Mean Corpuscular Hemoglobin 31.5 pg (27-31); Mean Corpuscular Hgb Conc 33.3 g/dl (32-36); Mean Platelet Volume 10.3 fl (8-11.3); Neutrophil # 3.4 K/mm3 (1.3-6.0); Neutrophil % 58.8 % (42-75.0); Platelet Count 178 K/mm3 (150-450); Red Blood Count 2.38 M/mm3 (4.7-6.0); Red Cell Distribution Width 14.7 % (11.5-14.0); White Blood Count 5.7 K/mm3 (4.0-10.5)
[2019-11-27 07:09] LABS: Anion Gap 13.4 mmol/L (6.8-13.8); Carbon Dioxide 24.8 mmol/L (24-32.6); Potassium 4.2 mmol/L (3.4-4.6)
[2019-11-27 07:26] LABS: Hematocrit 22.5 % (42.0-52.0); Hemoglobin 7.5 gm/dL (13.5-18.0)
[2019-11-27] MEDS: ATENOLOL 100 MG TABLET PO SCH (08:11)
[2019-11-27] MEDS ORDERED: NORMAL SALINE 1,000 ML IV ONE (09:42)
--- NOTE | 2019-11-27 10:09 | HP ---
Chief Complaint - Chief Complaint Date of Service: 11/26/19 Time of Service: 13:15 Chief Complaint: Abdominal pain, black stools History of Present Illness: 69-year-old male with history of previous GI bleed, currently on meloxicam who presented to the ER with 1 day of abdominal pain and 2 to 3 days of black thick stools, multiple bowel movements during this time. Prior to that change in stool, patient was feeling well and had no concerns or complaints. He was currently taken anti-inflammatory medication for knee pain which was working well for him. Initial hemoglobin was 9.2. He also had an elevated potassium at 5.3 which trended up to 5.9 while in the ER. He was given some albuterol to help lower his potassium. Initial vital signs were stable despite mildly elevated blood pressure. He was satting well on room air and had regular rate and rhythm. General surgery was consulted who wanted the patient to be observed to see if his hemoglobin stabilized after receiving Protonix in the ER. Due to risk of coronavirus, they were waiting to see if he needed to taken back for colonoscopy/endoscopy. Patient currently n.p.o. aside from medications. Patient no longer having abdominal pain at time of admission, states he feels well and has no urgency or frequency with his bowel movements currently. Patient admitted for observation. Medical History (Last Updated 11/26/19 @ 11:52 by April Oswald RN) Gastrointestinal bleed BPH (benign prostatic hyperplasia) CAD (coronary artery disease) HLD (hyperlipidemia) HTN (hypertension) Testicular cyst removed Surgical History: Surgical History (Last Updated 11/26/19 @ 11:53 by April Oswald RN) History of esophagogastroduodenoscopy (EGD) Onset Date: ~12/2018 History of hip replacement Hx of heart artery stent Family History: Family History (Last Reviewed 11/26/19 @ 11:53 by April Oswald RN) Father PAD (peripheral artery disease) Heart disease Social History: (Last Reviewed 11/26/19 @ 11:53 by April Oswald RN) Tobacco: Smoking Status: Former smoker Review Of Systems (GEN) - Review of Systems Generalized/Overall Review: Absent: Weakness, Chills, Fever EENTM: Present: No Symptoms Reported Respiratory: Present: No Symptoms Reported Cardiac: Present: No Symptoms Reported Abdominal: Present: Abdominal Pain, Melena. Absent: Nausea, Vomiting Genitourinary: Present: No Symptoms Reported Musculoskeletal: Present: Joint Pain - Right knee Neurological: Present: No Symptoms Reported Skin: Present: No Symptoms Reported Endocrine: Present: No Symptoms Reported Immunizations: IMMUNIZATION HX Immunizations Up to Date Yes History of Influenza Vaccine Yes Hx Pneumococcal Vaccination Yes Allergies/Adverse Reactions: Allergies Allergy/AdvReac Type Severity Reaction Status Date / Time Penicillins Allergy Mild Hives Verified 11/26/19 08:43 Home Medications: HOME MEDICATIONS aspirin 81 mg tablet,delayed release 81 mg PO DAILY 05/27/19 [Last Taken Unknown] diclofenac sodium 1 % topical gel 2 g TP QID #100 g 05/27/19 [Last Taken Unknown] simvastatin 20 mg tablet 20 mg PO HS #30 tab 10/15/19 [Last Taken Unknown] meloxicam 15 mg tablet 15 mg PO DAILY #30 tab 10/21/19 [Last Taken Unknown] Atenolol [Tenormin] 50 mg PO QPM 11/26/19 [Last Taken Unknown] Atenolol [Tenormin] 100 mg PO QAM 11/26/19 [Last Taken Unknown] Lisinopril 20 mg PO HS 11/26/19 [Last Taken Unknown] Exam - Exam Vital Signs: Vital Signs - Last Taken Temp 37.2 C 11/27/19 06:34 Pulse 77 11/27/19 08:11 Resp 14 11/27/19 06:34 BP 137/63 11/27/19 08:11 Pulse Ox 98 11/27/19 06:34 Constitutional: Present: Alert, Oriented x3, Cooperative, Well developed, Well nourished, No distress ENT Exam: Present: hearing grossly normal, pharynx normal. Absent: nasal congestion, nasal drainage Eye Exam: bilateral eye: normal inspection, EOMI Neck: Present: non-tender, supple Respiratory: Present: lungs clear, normal breath sounds Cardiovascular/Chest: Present: regular rate, rhythm, no murmur Abdomen: Present: Normal bowel sounds, soft, nontender, nondistended Skin Exam: Present: normal color Appearance: Present: appropriate appearance, appropriate insight Eye contact: Present: cooperative, good eye contact Thoughts: Present: normal thought pattern, normal mood /affect Diagnostic Studies: Abnormal Lab Results 11/26/19 11/26/19 11/26/19 Range/Units 09:18 09:18 09:18 RBC (4.7-6.0) M/mm3 Hgb (13.5-18.0) gm/dL Hct (42.0-52.0) % MCH (27-31) pg RDW (11.5-14.0) % Monocytes % (0.0-9) % Eosinophils % (0.0-3.0) % Lymphocytes # (1.5-3.5) k/mm3 PT 11.4 H (9.1-10.7) Seconds INR (Anticoag Therapy) 1.16 H (0.92-1.08) INR Potassium 5.3 H D (3.4-4.6) mmol/L Chloride 107 H (97-106) mmol/L Carbon Dioxide 23.2 L (24-32.6) mmol/L Anion Gap 17.1 H (6.8-13.8) mmol/L BUN 56 H (6-23) mg/dL Creatinine 1.55 H (0.4-1.4) mg/dL Est GFR (Non-Af Amer) 47 L (60-130) mL/min BUN/Creatinine Ratio 36.1 H (9.0-21.6) Random Glucose 128 H (70-110) mg/dL Alkaline Phosphatase 39 L (50-170) U/L Total Protein 6.1 L (6.2-8.2) gm/dL Crossmatch See Detail 11/26/19 11/26/19 11/26/19 Range/Units 10:39 16:53 20:28 RBC 2.85 L (4.7-6.0) M/mm3 Hgb 9.0 L (13.5-18.0) gm/dL Hct 26.9 L (42.0-52.0) % MCH 31.6 H (27-31) pg RDW 14.4 H (11.5-14.0) % Monocytes % (0.0-9) % Eosinophils % (0.0-3.0) % Lymphocytes # (1.5-3.5) k/mm3 PT (9.1-10.7) Seconds INR (Anticoag Therapy) (0.92-1.08) INR Potassium 5.9 H (3.4-4.6) mmol/L Chloride 108 H 107 H (97-106) mmol/L Carbon Dioxide (24-32.6) mmol/L Anion Gap (6.8-13.8) mmol/L BUN 58 H 53 H (6-23) mg/dL Creatinine 1.41 H (0.4-1.4) mg/dL Est GFR (Non-Af Amer) 53 L 54 L (60-130) mL/min BUN/Creatinine Ratio 41.1 H 38.1 H (9.0-21.6) Random Glucose 127 H (70-110) mg/dL Alkaline Phosphatase (50-170) U/L Total Protein (6.2-8.2) gm/dL Crossmatch 11/26/19 11/27/19 11/27/19 Range/Units 20:28 06:56 06:56 RBC 2.38 L (4.7-6.0) M/mm3 Hgb 7.5 L* (13.5-18.0) gm/dL Hct 22.5 L* (42.0-52.0) % MCH 31.5 H (27-31) pg RDW 14.7 H (11.5-14.0) % Monocytes % 10.5 H (0.0-9) % Eosinophils % 3.9 H (0.0-3.0) % Lymphocytes # 1.49 L (1.5-3.5) k/mm3 PT (9.1-10.7) Seconds INR (Anticoag Therapy) (0.92-1.08) INR Potassium (3.4-4.6) mmol/L Chloride 107 H (97-106) mmol/L Carbon Dioxide (24-32.6) mmol/L Anion Gap 15.9 H (6.8-13.8) mmol/L BUN 50 H 49 H (6-23) mg/dL Creatinine 1.47 H 1.69 H (0.4-1.4) mg/dL Est GFR (Non-Af Amer) 50 L 43 L (60-130) mL/min BUN/Creatinine Ratio 34.0 H 29.0 H (9.0-21.6) Random Glucose (70-110) mg/dL Alkaline Phosphatase (50-170) U/L Total Protein (6.2-8.2) gm/dL Crossmatch Laboratory Results WBC 5.7 K/mm3 (4.0-10.5) D 11/27/19 06:56 RBC 2.38 M/mm3 (4.7-6.0) L 11/27/19 06:56 Hgb 7.5 gm/dL (13.5-18.0) L* 11/27/19 06:56 Hct 22.5 % (42.0-52.0) L* 11/27/19 06:56 MCV 94.5 fl (78-100) 11/27/19 06:56 MCH 31.5 pg (27-31) H 11/27/19 06:56 MCHC 33.3 g/dl (32-36) 11/27/19 06:56 RDW 14.7 % (11.5-14.0) H 11/27/19 06:56 Plt Count 178 K/mm3 (150-450) 11/27/19 06:56 MPV 10.3 fl (8-11.3) 11/27/19 06:56 Immature Gran % (Auto) 0.20 % (0.001-0.429) 11/27/19 06:56 Immature Gran # (Auto) 0.01 K/mm3 (0.000-0.0310) 11/27/19 06:56 Neutrophils % 58.8 % (42-75.0) 11/27/19 06:56 Lymphocytes % 26.1 % (20-51) 11/27/19 06:56 Monocytes % 10.5 % (0.0-9) H 11/27/19 06:56 Eosinophils % 3.9 % (0.0-3.0) H 11/27/19 06:56 Basophils % 0.5 % (0.0-1.0) 11/27/19 06:56 Nucleated RBC % 0.0 k/mm3 (0-1) 11/27/19 06:56 Neutrophils # 3.4 K/mm3 (1.3-6.0) 11/27/19 06:56 Lymphocytes # 1.49 k/mm3 (1.5-3.5) L 11/27/19 06:56 Monocytes # 0.6 k/mm3 (0.0-1.0) 11/27/19 06:56 Eosinophils # 0.2 k/mm3 (0.0-0.7) 11/27/19 06:56 Absolute Basophils 0.0 k/mm3 (0.0-0.1) 11/27/19 06:56 PT 11.4 Seconds (9.1-10.7) H 11/26/19 09:18 INR (Anticoag Therapy) 1.16 INR (0.92-1.08) H 11/26/19 09:18 PTT (Villalba) 25.3 Seconds (24-32) 11/26/19 09:18 Sodium 141 mmol/L (132-142) 11/27/19 06:56 Plasma Sodium 141 mmol/L (130-142) 11/27/19 06:56 Potassium 4.2 mmol/L (3.4-4.6) 11/27/19 06:56 Chloride 107 mmol/L (97-106) H 11/27/19 06:56 Carbon Dioxide 24.8 mmol/L (24-32.6) 11/27/19 06:56 Anion Gap 13.4 mmol/L (6.8-13.8) 11/27/19 06:56 BUN 49 mg/dL (6-23) H 11/27/19 06:56 Creatinine 1.69 mg/dL (0.4-1.4) H 11/27/19 06:56 Est GFR (Non-Af Amer) 43 mL/min (60-130) L 11/27/19 06:56 BUN/Creatinine Ratio 29.0 (9.0-21.6) H 11/27/19 06:56 Random Glucose 108 mg/dL (70-110) 11/27/19 06:56 Calcium 8.0 mg/dL (7.9-10.9) 11/27/19 06:56 Calcium Adj for Albumin 8.4 mg/dL (8.4-10.2) 11/26/19 09:18 Total Bilirubin 0.4 mg/dL (0.0-1.1) 11/26/19 09:18 AST 14 U/L (0-48) 11/26/19 09:18 ALT 24 U/L (19-67) 11/26/19 09:18 Alkaline Phosphatase 39 U/L (50-170) L 11/26/19 09:18 Total Protein 6.1 gm/dL (6.2-8.2) L 11/26/19 09:18 Albumin 3.4 gm/dl (3.4-5.0) 11/26/19 09:18 Blood Type A Positive 11/26/19 09:18 Antibody Screen Negative 11/26/19 09:18 Crossmatch See Detail 11/26/19 09:18 Assessment/Plan - Narrative Narrative: 69-year-old male with abdominal pain and black stools starting roughly 2 to 3 days ago admitted for observation due to suspected GI bleed. General surgery consulted who wish to wait to see how the patient's hemoglobin does overnight. Patient has had one black tarry stool since being observed prior to this examination. Hemoglobin repeated later this afternoon which was stable at 9.0. Potassium also improved after being given 20 units of insulin, blood sugar stable and being monitored. Patient longer having abdominal pain. Patient currently n.p.o. aside from medications. Blood pressure also normalized. We will continue to monitor kidney function as he does have an acute kidney injury, it is mild though and so holding on giving much of fluids to see how his hemoglobin does without being diluted. If kidney function worsens overnight then we will give him a bolus of normal saline. Otherwise patient feels well and has no concerns or questions at this time. Patient n.p.o. SCDs to be worn while in bed. Nurse to call with questions or concerns. Hemoglobin will determine course of action moving forward, if it drops then will discuss his case again with general surgery to determine whether or not they want to proceed with colonoscopy/endoscopy. - Assessment/Plan (1) GI bleeding Problem: Resolved (2) Hyperkalemia Problem: Acute (3) Acute kidney injury Problem: Acute (4) Hypertension Problem: Chronic
[2019-11-27] MEDS ORDERED: PANTOPRAZOLE SODIUM 40 MG TABLET.EC PO ONE (10:28)
[2019-11-27 16:45] LABS: Hematocrit 25.3 % (42.0-52.0); Hemoglobin 8.4 gm/dL (13.5-18.0); Mean Cell Volume 93.4 fl (78-100); Mean Corpuscular Hgb Conc 33.2 g/dl (32-36); Mean Platelet Volume 10.8 fl (8-11.3); Platelet Count 173 K/mm3 (150-450); Red Blood Count 2.71 M/mm3 (4.7-6.0)
[2019-11-27 16:49] LABS: Anion Gap 13.5 mmol/L (6.8-13.8); BUN/Creatinine Ratio 29.4 (9.0-21.6); Calcium * 8.3 mg/dL (7.9-10.9); Carbon Dioxide 24.9 mmol/L (24-32.6); Estimated Creat Clear 43.7; Potassium 4.4 mmol/L (3.4-4.6)
[2019-11-27] MEDS: ATENOLOL 50 MG TABLET PO SCH (16:50)
[2019-11-27] MEDS: LISINOPRIL 20 MG TABLET PO SCH (20:26)
[2019-11-27] MEDS: PANTOPRAZOLE SODIUM 40 MG TABLET.EC PO SCH (20:26)
[2019-11-27] MEDS: SIMVASTATIN 20 MG TABLET PO SCH (20:26)
--- NOTE | 2019-11-27 23:40 | PN ---
Subjective - Date and Time Seen Date: 11/27/19 Time: 11:00 Subjective Narrative: Patient laying comfortably in bed. Patient not having abdominal pain. Patient's has had 2 tarry stools overnight. Hemoglobin dropped as well as his kidney injury got a little worse. Overall though he feels well and has no complaints at this time. Objective - Review of Systems Generalized/Overall Review: Denies: Weakness, Chills, Fever EENTM: Reports: No Symptoms Reported Respiratory: Reports: No Symptoms Reported Cardiac: Reports: No Symptoms Reported Abdominal: Reports: Melena. Denies: Nausea, Vomiting, Abdominal Pain Genitourinary Symptoms: Reports: No Symptoms Reported Musculoskeletal Complaints: Reports: Joint Pain - Right knee - Vitals Vitals: Last Vital Signs Temp 37.3 C 11/27/19 21:40 Pulse 74 11/27/19 21:40 Resp 16 11/27/19 21:40 BP 148/62 11/27/19 21:40 Pulse Ox 91 L 11/27/19 21:40 - Abnormal Lab Findings Abnormal Lab Findings: Abnormal Lab Results 11/26/19 11/27/19 11/27/19 Range/Units 09:18 06:56 06:56 RBC 2.38 L (4.7-6.0) M/mm3 Hgb 7.5 L* (13.5-18.0) gm/dL Hct 22.5 L* (42.0-52.0) % MCH 31.5 H (27-31) pg RDW 14.7 H (11.5-14.0) % Monocytes % 10.5 H (0.0-9) % Eosinophils % 3.9 H (0.0-3.0) % Lymphocytes # 1.49 L (1.5-3.5) k/mm3 Chloride 107 H (97-106) mmol/L BUN 49 H (6-23) mg/dL Creatinine 1.69 H (0.4-1.4) mg/dL Est GFR (Non-Af Amer) 43 L (60-130) mL/min BUN/Creatinine Ratio 29.0 H (9.0-21.6) Crossmatch See Detail 11/27/19 11/27/19 Range/Units 16:36 16:36 RBC 2.71 L (4.7-6.0) M/mm3 Hgb 8.4 L (13.5-18.0) gm/dL Hct 25.3 L (42.0-52.0) % MCH (27-31) pg RDW 16.0 H (11.5-14.0) % Monocytes % (0.0-9) % Eosinophils % (0.0-3.0) % Lymphocytes # (1.5-3.5) k/mm3 Chloride 107 H (97-106) mmol/L BUN 50 H (6-23) mg/dL Creatinine 1.70 H (0.4-1.4) mg/dL Est GFR (Non-Af Amer) 42 L (60-130) mL/min BUN/Creatinine Ratio 29.4 H (9.0-21.6) Crossmatch - Exam Constitutional: Present: Alert, Oriented x3, Cooperative, Well developed, Elderly ENT Exam: Present: hearing grossly normal, moist mucous membranes Neck: Present: non-tender, full range of motion Respiratory: Present: lungs clear, normal breath sounds Cardiovascular/Chest: Present: regular rate, rhythm, no murmur Abdomen: Present: Normal bowel sounds, soft, nontender, nondistended Appearance: Present: appropriate appearance, appropriate insight Eye contact: Present: cooperative Thoughts: Present: normal thought pattern, normal mood /affect Assessment/Plan Plan Narrative: Patient is comfortable in bed though his hemoglobin dropped to 7.5. Will transfuse 1 unit today, repeat hemoglobin later this evening. May need an additional unit of packed red blood cells if he continues to have tarry stools. He is on Protonix and all offending medications stopped. Discussed case with general surgery who agrees that conservative measures are only needed at this time as it is likely a duodenal ulcer like he had previously. His vital signs are stable. His creatinine bumped up a little bit, up from 1.4 now at 1.6. We will give a bolus of normal saline to help with his kidney function. Advised the patient to increase his fluid intake. Patient has no history of kidney disease. Will repeat BMP in the morning. Blood pressure well controlled Chronic medications restarted aside from his meloxicam and aspirin Regular diet ordered. SCDs to be worn while in bed. Nurse to call questions or concerns. - Problems/Diagnosis (1) GI bleeding Problem: Acute (2) History of duodenal ulcer Problem: Acute (3) Hyperkalemia Problem: Acute (4) Acute kidney injury Problem: Acute (5) Hypertension Problem: Chronic
[2019-11-27 23:43] LABS: Mean Cell Volume 93.1 fl (78-100); Mean Corpuscular Hemoglobin 30.6 pg (27-31); Mean Corpuscular Hgb Conc 32.9 g/dl (32-36); Mean Platelet Volume 10.7 fl (8-11.3); Platelet Count 146 K/mm3 (150-450); Red Blood Count 2.48 M/mm3 (4.7-6.0); Red Cell Distribution Width 16.1 % (11.5-14.0); White Blood Count 5.7 K/mm3 (4.0-10.5)
[2019-11-27 23:53] LABS: Hemoglobin 7.6 gm/dL (13.5-18.0)
[2019-11-27 23:54] LABS: Hematocrit 23.1 % (42.0-52.0)
[2019-11-28 07:03] LABS: Hematocrit 25.6 % (42.0-52.0); Hemoglobin 8.6 gm/dL (13.5-18.0); Mean Cell Volume 92.8 fl (78-100); Mean Corpuscular Hemoglobin 31.2 pg (27-31); Mean Corpuscular Hgb Conc 33.6 g/dl (32-36); Mean Platelet Volume 9.9 fl (8-11.3); Platelet Count 128 K/mm3 (150-450); Red Blood Count 2.76 M/mm3 (4.7-6.0); Red Cell Distribution Width 15.7 % (11.5-14.0); White Blood Count 5.4 K/mm3 (4.0-10.5)
[2019-11-28 07:10] LABS: Anion Gap 16.2 mmol/L (6.8-13.8); BUN/Creatinine Ratio 26.4 (9.0-21.6); Calcium * 8.4 mg/dL (7.9-10.9); Carbon Dioxide 23.9 mmol/L (24-32.6); Estimated Creat Clear 42.7; Potassium 4.1 mmol/L (3.4-4.6)
[2019-11-28] MEDS: PANTOPRAZOLE SODIUM 40 MG TABLET.EC PO SCH ×2 (07:24→20:03)
[2019-11-28] MEDS: ATENOLOL 100 MG TABLET PO SCH (08:34)
[2019-11-28] MEDS: ATENOLOL 50 MG TABLET PO SCH (18:03)
[2019-11-28] MEDS: NORMAL SALINE 1,000 ML IV PRN (18:50)
[2019-11-28] MEDS: LISINOPRIL 20 MG TABLET PO SCH (20:03)
[2019-11-28] MEDS: SIMVASTATIN 20 MG TABLET PO SCH (20:03)
--- NOTE | 2019-11-28 22:40 | PN ---
Subjective - Date and Time Seen Date: 11/28/19 Time: 22:09 Subjective Narrative: He is feeling much better. Hemoglobin is stable. Still has an acute kidney injury, up from 1.6 creatinine. HIs VSS are he has been afebrile. He did have multiple BMs over night that were tarry. no belly pain, N/V, C/D. Objective - Review of Systems Generalized/Overall Review: Denies: Weakness, Fever EENTM: Reports: No Symptoms Reported, Mouth Pain Respiratory: Denies: Cough, Shortness of Breath Cardiac: Reports: No Symptoms Reported Abdominal: Reports: Melena. Denies: Nausea, Abdominal Pain Musculoskeletal Complaints: Reports: Joint Pain - knee Skin: Reports: No Symptoms Reported - Vitals Vitals: Last Vital Signs Temp 37 C 11/28/19 18:33 Pulse 73 11/28/19 20:03 Resp 20 11/28/19 18:33 BP 146/59 11/28/19 20:03 Pulse Ox 96 11/28/19 18:33 - Abnormal Lab Findings Abnormal Lab Findings: Abnormal Lab Results 11/26/19 11/27/19 11/28/19 Range/Units 09:18 23:36 06:58 RBC 2.48 L 2.76 L (4.7-6.0) M/mm3 Hgb 7.6 L* 8.6 L (13.5-18.0) gm/dL Hct 23.1 L* 25.6 L (42.0-52.0) % MCH 31.2 H (27-31) pg RDW 16.1 H 15.7 H (11.5-14.0) % Plt Count 146 L 128 L (150-450) K/mm3 Carbon Dioxide (24-32.6) mmol/L Anion Gap (6.8-13.8) mmol/L BUN (6-23) mg/dL Creatinine (0.4-1.4) mg/dL Est GFR (Non-Af Amer) (60-130) mL/min BUN/Creatinine Ratio (9.0-21.6) Random Glucose (70-110) mg/dL Crossmatch See Detail 11/28/19 Range/Units 06:58 RBC (4.7-6.0) M/mm3 Hgb (13.5-18.0) gm/dL Hct (42.0-52.0) % MCH (27-31) pg RDW (11.5-14.0) % Plt Count (150-450) K/mm3 Carbon Dioxide 23.9 L (24-32.6) mmol/L Anion Gap 16.2 H (6.8-13.8) mmol/L BUN 46 H (6-23) mg/dL Creatinine 1.74 H (0.4-1.4) mg/dL Est GFR (Non-Af Amer) 41 L (60-130) mL/min BUN/Creatinine Ratio 26.4 H (9.0-21.6) Random Glucose 115 H (70-110) mg/dL Crossmatch - Exam Constitutional: Present: Alert, Oriented x3, Cooperative, Well nourished, Elderly ENT Exam: Present: hearing grossly normal Respiratory: Present: lungs clear, normal breath sounds Cardiovascular/Chest: Present: regular rate, rhythm, no murmur Abdomen: Present: Normal bowel sounds, nontender, nondistended Skin Exam: Present: normal color Thoughts: Present: normal thought pattern, normal mood /affect Assessment/Plan Plan Narrative: Patient feels much better today, multiple BMs overnight but none in the last 10 hours. Vitals are stable. Hemoglobin stable. Creatinine bumped slightly. Will start him on fluids and watch him one more night. HTN stable, potassium normalized SCDs for DVT, Reg diet, nurse to call with questions or concerns. - Problems/Diagnosis (1) GI bleeding Problem: Acute (2) History of duodenal ulcer Problem: Acute (3) Hyperkalemia Problem: Acute (4) Acute kidney injury Problem: Acute (5) Hypertension Problem: Chronic
[2019-11-29] MEDS: NORMAL SALINE 1,000 ML IV PRN ×2 (01:29→09:07)
[2019-11-29] MEDS: PANTOPRAZOLE SODIUM 40 MG TABLET.EC PO SCH (07:25)
[2019-11-29] MEDS: ATENOLOL 100 MG TABLET PO SCH (08:11)
[2019-11-29 09:47] LABS: Anion Gap 11.7 mmol/L (6.8-13.8); BUN/Creatinine Ratio 20.1 (9.0-21.6); Carbon Dioxide 26.3 mmol/L (24-32.6); Estimated Creat Clear 49.9
--- NOTE | 2019-11-29 10:10 | DS ---
(1) GI bleeding Problem: Resolved Qualifiers: GI bleed type/associated pathology: duodenal ulcer Qualified Code(s): K26.4 - Chronic or unspecified duodenal ulcer with hemorrhage (2) History of duodenal ulcer Problem: Acute (3) Hyperkalemia Problem: Resolved (4) Acute kidney injury Problem: Acute (5) Hypertension Problem: Chronic Date of Discharge:: 11/29/19 Hospital Course: 69-year-old male admitted to the hospital for acute upper GI bleed. Patient has history of duodenal ulcers and had recently been on an anti-inflammatory medication which upset his stomach. Patient's hemoglobin stabilized after dropping down to 7.6. Patient also had an acute kidney injury where his creatinine had bumped up to 1.74 x 1 day discharge was significantly improved. Patient had multiple bloody bowel movements the day of admission for the first 24 hours but this stopped. No bloody bowel movements lasting for hours. No abdominal pain. Patient been afebrile his vital signs been stable. Patient will be sent home on omeprazole to be taken daily. Patient also to be off all anti-inflammatory medications as he cannot tolerate them. No other changes made to his home medications. Procedures Performed: none Results and Findings: Lab Pending Results 11/26/19 09:18: WBC 6.5, RBC 2.94 L, Hgb 9.2 L, Hct 28.1 L, MCV 95.6, MCH 31.3 H, MCHC 32.7, RDW 14.3 H, Plt Count 176, MPV 10.1, Immature Gran % (Auto) 0.50 H, Immature Gran # (Auto) 0.03, Neutrophils % 80.1 H, Lymphocytes % 12.7 L, Monocytes % 5.8, Eosinophils % 0.6, Basophils % 0.3, Nucleated RBC % 0.0, Neutrophils # 5.2, Lymphocytes # 0.83 L, Monocytes # 0.4, Eosinophils # 0.0, Absolute Basophils 0.0 11/26/19 09:18: PT 11.4 H, INR (Anticoag Therapy) 1.16 H, PTT (Barber) 25.3 11/26/19 09:18: Sodium 142, Plasma Sodium 142, Potassium 5.3 H D, Chloride 107 H, Carbon Dioxide 23.2 L, Anion Gap 17.1 H, BUN 56 H, Creatinine 1.55 H, Est GFR (Non-Af Amer) 47 L, BUN/Creatinine Ratio 36.1 H, Random Glucose 128 H, Calcium 8.2, Calcium Adj for Albumin 8.4, Total Bilirubin 0.4, AST 14, ALT 24, Alkaline Phosphatase 39 L, Total Protein 6.1 L, Albumin 3.4 11/26/19 09:18: Blood Type A Positive, Antibody Screen Negative, Crossmatch See Detail 11/26/19 10:39: Sodium 140, Plasma Sodium 140, Potassium 5.9 H, Chloride 108 H, Carbon Dioxide 24.1, Anion Gap 13.8, BUN 58 H, Creatinine 1.41 H, Est GFR (Non- Af Amer) 53 L, BUN/Creatinine Ratio 41.1 H, Random Glucose 127 H, Calcium 8.2 11/26/19 16:53: Sodium 142, Plasma Sodium 142, Potassium 4.4 D, Chloride 107 H, Carbon Dioxide 25.9, Anion Gap 13.5, BUN 53 H, Creatinine 1.39, Est GFR (Non-Af Amer) 54 L, BUN/Creatinine Ratio 38.1 H, Random Glucose 74 D, Calcium 8.1 11/26/19 20:28: WBC 7.4, RBC 2.85 L, Hgb 9.0 L, Hct 26.9 L, MCV 94.4, MCH 31.6 H, MCHC 33.5, RDW 14.4 H, Plt Count 198, MPV 10.3 11/26/19 20:28: Sodium 141, Plasma Sodium 141, Potassium 4.2, Chloride 105, Carbon Dioxide 24.3, Anion Gap 15.9 H, BUN 50 H, Creatinine 1.47 H, Est GFR (Non-Af Amer) 50 L, BUN/Creatinine Ratio 34.0 H, Random Glucose 100 D, Calcium 8.3 11/27/19 06:56: WBC 5.7 D, RBC 2.38 L, Hgb 7.5 L*, Hct 22.5 L*, MCV 94.5, MCH 31.5 H, MCHC 33.3, RDW 14.7 H, Plt Count 178, MPV 10.3, Immature Gran % (Auto) 0.20, Immature Gran # (Auto) 0.01, Neutrophils % 58.8, Lymphocytes % 26.1, Monocytes % 10.5 H, Eosinophils % 3.9 H, Basophils % 0.5, Nucleated RBC % 0.0, Neutrophils # 3.4, Lymphocytes # 1.49 L, Monocytes # 0.6, Eosinophils # 0.2, Absolute Basophils 0.0 11/27/19 06:56: Sodium 141, Plasma Sodium 141, Potassium 4.2, Chloride 107 H, Carbon Dioxide 24.8, Anion Gap 13.4, BUN 49 H, Creatinine 1.69 H, Est GFR (Non- Af Amer) 43 L, BUN/Creatinine Ratio 29.0 H, Random Glucose 108, Calcium 8.0 11/27/19 16:36: WBC 6.0, RBC 2.71 L, Hgb 8.4 L, Hct 25.3 L, MCV 93.4, MCH 31.0, MCHC 33.2, RDW 16.0 H, Plt Count 173, MPV 10.8 11/27/19 16:36: Sodium 141, Plasma Sodium 141, Potassium 4.4, Chloride 107 H, Carbon Dioxide 24.9, Anion Gap 13.5, BUN 50 H, Creatinine 1.70 H, Est GFR (Non- Af Amer) 42 L, BUN/Creatinine Ratio 29.4 H, Random Glucose 103, Calcium 8.3 11/27/19 23:36: WBC 5.7, RBC 2.48 L, Hgb 7.6 L*, Hct 23.1 L*, MCV 93.1, MCH 30.6, MCHC 32.9, RDW 16.1 H, Plt Count 146 L, MPV 10.7 11/28/19 06:58: WBC 5.4, RBC 2.76 L, Hgb 8.6 L, Hct 25.6 L, MCV 92.8, MCH 31.2 H, MCHC 33.6, RDW 15.7 H, Plt Count 128 L, MPV 9.9 11/28/19 06:58: Sodium 142, Plasma Sodium 142, Potassium 4.1, Chloride 106, Carbon Dioxide 23.9 L, Anion Gap 16.2 H, BUN 46 H, Creatinine 1.74 H, Est GFR (Non-Af Amer) 41 L, BUN/Creatinine Ratio 26.4 H, Random Glucose 115 H, Calcium 8.4 11/29/19 09:25: Sodium 140, Plasma Sodium 140, Potassium 4.0, Chloride 106, Carbon Dioxide 26.3, Anion Gap 11.7, BUN 30 H, Creatinine 1.49 H, Est GFR (Non- Af Amer) 49 L, BUN/Creatinine Ratio 20.1, Random Glucose 109, Calcium 8.0 Discharge Location: Home Disposition: Home self-care Condition: Stable Discharge Activity: Activity as tolerated Discharge Diet: General/regular food Referrals: Ceferino Rainey DO [Primary Care Provider] - One Week (Phone visit in 1 week, possible repeat labs) Problem Oriented Discharge Instructions to Patient/Family: Gastrointestinal Bleeding, [id number] Additional Patient Instructions (free text): Follow up phone call x1 week with Brigid. Prescriptions (Any new or edited meds): Omeprazole 40 mg PO DAILY #30 capsule. Transmission Status: Received by [facility] #[id number] Complete Home Medications List: Complete Home Medication List: aspirin 81 mg tablet,delayed release 81 mg PO DAILY 05/27/19 diclofenac sodium 1 % topical gel 2 g TP QID #100 g 05/27/19 simvastatin 20 mg tablet 20 mg PO HS #30 tab 10/15/19 meloxicam 15 mg tablet 15 mg PO DAILY #30 tab 10/21/19 Atenolol [Tenormin] 50 mg PO QPM 11/26/19 Atenolol [Tenormin] 100 mg PO QAM 11/26/19 Lisinopril 20 mg PO HS 11/26/19 Omeprazole 40 mg PO DAILY #30 capsule. 11/29/19
[2019-11-29 11:33] VITALS: BP 169/69
== END 2019-11-29 11:40 | disposition home or self-care (01) | DRG 378 ==
LOC: MS 08:33 → ER 08:33 → MS 11:30
PROVIDERS: ADMIT Family Medicine; ATTEND Family Medicine
CPT/HCPCS: 36415; 80048; 80053; 85025; 85027; 85610; 85730; 86850; 93005; 94640; 94664; 96365; 96366; 96375; 99285; G0378; P9016

== ENCOUNTER 2019-11-30 06:09 | Inpatient (IN) ==
--- NOTE | 2019-11-30 06:36 | ERNOTE ---
GI Bleeding/Rectal Pain ER Presenting Symptoms: dark/tarry stools Time Seen by Provider: 11/30/19 06:20 Source: patient, RN notes reviewed, past records Exam Limitations: no limitations Immunizations: IMMUNIZATION HX Immunizations Up to Date Yes History of Influenza Vaccine Yes Hx Pneumococcal Vaccination Yes Allergies/Adverse Reactions: Allergies Penicillins Allergy (Mild, Verified 11/26/19 08:43) Hives Home Medications: HOME MEDICATIONS aspirin 81 mg tablet,delayed release 81 mg PO DAILY 05/27/19 [Last Taken Unknown] simvastatin 20 mg tablet 20 mg PO HS #30 tab 10/15/19 [Last Taken Unknown] Atenolol [Tenormin] 50 mg PO QPM 11/26/19 [Last Taken Unknown] Atenolol [Tenormin] 100 mg PO QAM 11/26/19 [Last Taken Unknown] Lisinopril 20 mg PO HS 11/26/19 [Last Taken Unknown] Omeprazole 40 mg PO DAILY #30 capsule. 11/29/19 [Last Taken Unknown] Narrative: Patient is a 69-year-old white male with past medical history significant for bleeding ulcers that were clipped a year ago, had recent GI bleed and was in the hospital, receiving 2 units packed red blood cells with discharge from the hospital yesterday with a hemoglobin 8.6. States this morning he had a dark tarry stool and was concerned that if he had another bowel movement it would be loose and bloody. He admits to some slight nausea and heartburn, but no hematemesis. He has had some dyspnea on exertion, mild dizziness and weakness to the point where it is difficult for him to cross the room. He denies any fevers or chills or cough or significant chest pain or syncopal episodes. He does have a history of PAD and takes a baby aspirin regularly. He was started on omeprazole at time of discharge from the hospital but no iron. He had previously been on meloxicam that was discontinued. He denied being placed on any Carafate. He is continued his lisinopril and simvastatin and baby aspirin without change. Because of his symptoms overall he returned to the hospital for further evaluation. Timing: getting worse Quality/Severity: Present: moderate Nausea/Vomiting: Present: none Abdominal Pain: Present: epigastric Rectal Bleeding: Present: none Associated Symptoms: Reports: black stools Prior Treament: Reports: recently seen, treated by physician, recently hospitalized, similar symptoms before Review of Systems - Review of Systems Constitutional: Present: weakness, fatigue. Absent: fever, chills EYE: Absent: blurred vision, double vision ENT: Absent: nose congestion, sore throat Respiratory: Present: shortness of breath. Absent: cough, orthopnea, wheezing Cardiology: Present: claudication. Absent: chest pain, palpitations, syncope, edema Gastrointestinal/Abdominal: Present: nausea, abdominal pain. Absent: vomiting, diarrhea, constipation, eating less, drinking less Genitourinary: Absent: pain, dysuria Musculoskeletal: Absent: back pain Skin: Absent: rash Neurological: Present: dizziness/light-headedness, weakness. Absent: headache, seizure, numbness, tingling Endocrine: Absent: excessive sweating, flushing, intolerance to heat, intolerance to cold Hematologic/Lymphatic: Absent: easy bruising, easy bleeding Psych: Absent: anxiety, depressed Medical History (Last Updated 11/30/19 @ 06:35 by Kenan Eddy MD) Gastric ulcer PAD (peripheral artery disease) Schatzki's ring BPH (benign prostatic hyperplasia) CAD (coronary artery disease) Gastrointestinal bleed HLD (hyperlipidemia) HTN (hypertension) Testicular cyst removed Surgical History: Surgical History (Last Reviewed 11/30/19 @ 06:34 by Kenan Eddy MD) History of esophagogastroduodenoscopy (EGD) Onset Date: ~12/2018 History of hip replacement Hx of heart artery stent Family History: Family History (Last Reviewed 11/30/19 @ 06:34 by Kenan Eddy MD) Father PAD (peripheral artery disease) Heart disease Social History: (Last Reviewed 11/30/19 @ 06:34 by Kenan Eddy MD) Tobacco: Smoking Status: Former smoker Alcohol: alcohol intake: current alcohol intake frequency: a few times a week Substance Use: substance use type: does not use Physical Exam - Physical Exam General Appearance: Present: wd/wn, alert, no apparent distress Head Exam: Present: normal inspection, no evidence of injury Eye Exam: Normal inspection: bilateral, PERRL: bilateral, EOMI: bilateral, Conjunctivae pale: bilateral Ears, Nose, Throat: Present: normal ENT inspection Neck: Present: supple Respiratory: Present: normal breath sounds, no accessory muscle use, chest nontender, lungs clear Cardiovascular/Chest: Present: regular rate, rhythm, no murmur, normal peripheral pulses Gastrointestinal/Abdominal: Present: normal bowel sounds, nontender, nondistended, soft, no organomegaly Rectal Exam: Present: nontender - sticky, tarry black stool. no gross blood., normal rectal tone, black stool Male Genitals Exam: Present: normal genitalia Back Exam: Present: normal inspection Extremity Exam: Present: normal inspection Neurological Exam: Present: alert, oriented, normal mood/affect, no motor/senso ry deficits Skin Exam: Present: pallor Progress - Results and Orders Patient's Lab Results:: I have reviewed the patient's lab results. Results and Orders: Hb is 6.4. Will start blood transfusion. Laboratory Tests 11/30/19 06:30 WBC 5.4 RBC 2.03 L Hgb 6.4 L* D Hct 19.4 L* D MCV 95.6 MCH 31.5 H MCHC 33.0 RDW 15.4 H Plt Count 160 MPV 10.6 Immature Gran % (Auto) 0.60 H Immature Gran # (Auto) 0.03 Neutrophils % 64.0 Lymphocytes % 24.2 Monocytes % 7.8 Eosinophils % 3.2 H Basophils % 0.2 Nucleated RBC % 0.0 Neutrophils # 3.5 Lymphocytes # 1.30 L Laboratory Tests 11/30/19 06:30 Sodium 141 Plasma Sodium 141 Potassium 4.4 Chloride 108 H Carbon Dioxide 24.2 Anion Gap 13.2 BUN 64 H D Creatinine 1.55 H Est GFR (Non-Af Amer) 47 L BUN/Creatinine Ratio 41.3 H Random Glucose 125 H Calcium 7.9 Calcium Adj for Albumin 8.5 Total Bilirubin 0.3 AST 10 ALT 17 L Alkaline Phosphatase 37 L Total Protein 5.3 L Albumin 2.8 L Cr is slightly elevated from previous, but has history of CKF. Will add PT, PTT to labs. - Vital Signs Patient's Vital Signs:: I have reviewed the patient's vital signs. Vital Signs: Vital Signs 11/30/19 06:11 Temperature 36.6 C Pulse Rate 88 Respiratory Rate 16 Blood Pressure 128/51 O2 Sat by Pulse Oximetry 96 - Progress/Reassessment Chief Complaint: GI Bleed Progress:: Unchanged - Transfer of Care Expected Disposition: Admit Additional Notes: Patient discussed with Dr. Borges who is agreeable for admission. We will discuss case with Dr. Mars, but unable to reach at this time as phone gives a busy signal. Still unable to reach . Will admit and have Dr. Borges. Case D/w Dr. Mars. Recommends medical treatment for now since patient is hemodynamically stable. He will follow and consult if patients condition changes. Plan - Plan Plan: Given his recent hospitalization and overall symptoms and findings of the black tarry stools that do smell like old blood will repeat his hemoglobin, send his stool for guaiac and type and screen him just in case. IV has been started but will hold off on fluids for now as his vital signs are normal. Patient's hemoglobin is 6.4. We will start some IV Protonix while waiting for blood to arrive. We will transfuse him at least couple units of blood and place him in the hospital for now. Hold his aspirin, make NPO, do IV PPI. Hold BP meds for now. Might might need an upper endoscopy, will discuss with GS. Would consider po iron once things stabilize. Consider carafate, but only if no EGD won't be done. Departure Clinical Impression: Weakness GI bleed Qualifiers: GI bleed type/associated pathology: melena Qualified Code(s): K92.1 - Melena - Departure Disposition: Still a patient Condition: Fair
[2019-11-30 06:40] LABS: Mean Cell Volume 95.6 fl (78-100); Mean Corpuscular Hemoglobin 31.5 pg (27-31); Mean Platelet Volume 10.6 fl (8-11.3); Neutrophil # 3.5 K/mm3 (1.3-6.0); Platelet Count 160 K/mm3 (150-450); Red Blood Count 2.03 M/mm3 (4.7-6.0); Red Cell Distribution Width 15.4 % (11.5-14.0); White Blood Count 5.4 K/mm3 (4.0-10.5)
[2019-11-30 06:43] LABS: Hematocrit 19.4 % (42.0-52.0); Hemoglobin 6.4 gm/dL (13.5-18.0)
[2019-11-30 06:48] LABS: Albumin * 2.8 gm/dl (3.4-5.0); Anion Gap 13.2 mmol/L (6.8-13.8); BUN/Creatinine Ratio 41.3 (9.0-21.6); Bilirubin, Total 0.3 mg/dL (0.0-1.1); Ca. Corrected For Albumin 8.5 mg/dL (8.4-10.2); Calcium * 7.9 mg/dL (7.9-10.9); Carbon Dioxide 24.2 mmol/L (24-32.6); Potassium 4.4 mmol/L (3.4-4.6); Total Protein 5.3 gm/dL (6.2-8.2)
[2019-11-30] MEDS ORDERED: PANTOPRAZOLE SODIUM 40 MG/100 ML PIGGYBACK IV ONE (06:48)
[2019-11-30] MEDS: FUROSEMIDE 10 MG/ML VIAL IV ONE ×2 (07:02→11:07)
[2019-11-30 07:16] LABS: Prothrombin Time (Patient) 11.4 Seconds (9.1-10.7)
[2019-11-30 07:23] LABS: INR 1.16 INR (0.92-1.08); Partial Thrombolplastin Time 22.1 Seconds (24-32)
--- NOTE | 2019-11-30 08:38 | HP ---
Chief Complaint - Chief Complaint Date of Service: 11/30/19 Time of Service: 08:28 Chief Complaint: dark tarry stools History of Present Illness: Patient returns to the ER for dark tarry stools and dizziness. He was just discharged from our facility yesterday with similar symptoms. He was admitted and given unit of blood, and his NSAID was stopped. He no longer had bright red blood with bowel movements, but continued to have dark formed stools. His hemoglobin was 8.6 on 11/27. He went home midday yesterday and felt fine. He woke up overnight with abdominal pain and had significant dizziness when trying to walk to the bathroom. Hemoglobin today was 6.4. He is not tachycardic and blood pressure is not decreased. He is again admitted for this GI bleed. His case was discussed with surgery by the ER physician, and will consult surgery if he becomes hemodynamically unstable. Medical History (Last Reviewed 11/30/19 @ 07:29 by Jenni La RN) Gastric ulcer PAD (peripheral artery disease) Schatzki's ring BPH (benign prostatic hyperplasia) CAD (coronary artery disease) Gastrointestinal bleed HLD (hyperlipidemia) HTN (hypertension) Testicular cyst removed Surgical History: Surgical History (Last Reviewed 11/30/19 @ 07:29 by Jenni La RN) History of esophagogastroduodenoscopy (EGD) Onset Date: ~12/2018 History of hip replacement Hx of heart artery stent Family History: Family History (Last Reviewed 11/30/19 @ 07:29 by Jenni La RN) Father PAD (peripheral artery disease) Heart disease Social History: (Last Reviewed 11/30/19 @ 07:29 by Jenni La RN) Tobacco: Smoking Status: Former smoker Alcohol: alcohol intake: current alcohol intake frequency: a few times a week Substance Use: substance use type: does not use Review Of Systems (GEN) - Review of Systems Generalized/Overall Review: Present: Weakness. Absent: Fever Respiratory: Absent: Shortness of Breath Cardiac: Absent: Chest Pain, Edema Abdominal: Present: Melena. Absent: Nausea, Vomiting, Bright blood from rectum Genitourinary: Present: No Symptoms Reported Musculoskeletal: Present: Joint Pain - Knee Neurological: Present: No Symptoms Reported Skin: Present: No Symptoms Reported Immunizations: IMMUNIZATION HX Immunizations Up to Date Yes History of Influenza Vaccine Yes Hx Pneumococcal Vaccination Yes Allergies/Adverse Reactions: Allergies Allergy/AdvReac Type Severity Reaction Status Date / Time Penicillins Allergy Mild Hives Verified 11/30/19 07:30 Home Medications: HOME MEDICATIONS aspirin 81 mg tablet,delayed release 81 mg PO DAILY 05/27/19 [Last Taken Unknown] simvastatin 20 mg tablet 20 mg PO HS #30 tab 10/15/19 [Last Taken Unknown] Atenolol [Tenormin] 50 mg PO QPM 11/26/19 [Last Taken Unknown] Atenolol [Tenormin] 100 mg PO QAM 11/26/19 [Last Taken Unknown] Lisinopril 20 mg PO HS 11/26/19 [Last Taken Unknown] Omeprazole 40 mg PO DAILY #30 capsule. 11/29/19 [Last Taken Unknown] Exam - Exam Vital Signs: Vital Signs - Last Taken Temp 36.3 C 11/30/19 07:30 Pulse 83 11/30/19 07:30 Resp 16 11/30/19 07:30 BP 139/61 11/30/19 07:30 Pulse Ox 97 11/30/19 07:30 Constitutional: Present: Alert, Cooperative, No distress Respiratory: Present: normal breath sounds, no respiratory distress Cardiovascular/Chest: Present: regular rate, rhythm Abdomen: Present: soft, nontender Extremity: Present: other - SCDs in place. Absent: lower extremity edema Neurologic: Present: normal mood/affect Eye contact: Present: cooperative, good eye contact Diagnostic Studies: Abnormal Lab Results 11/30/19 11/30/19 11/30/19 Range/Units 06:30 06:30 06:30 RBC 2.03 L (4.7-6.0) M/mm3 Hgb 6.4 L* D (13.5-18.0) gm/dL Hct 19.4 L* D (42.0-52.0) % MCH 31.5 H (27-31) pg RDW 15.4 H (11.5-14.0) % Immature Gran % (Auto) 0.60 H (0.001-0.429) % Eosinophils % 3.2 H (0.0-3.0) % Lymphocytes # 1.30 L (1.5-3.5) k/mm3 PT (9.1-10.7) Seconds INR (Anticoag Therapy) (0.92-1.08) INR PTT (Kim) (24-32) Seconds Chloride 108 H (97-106) mmol/L BUN 64 H D (6-23) mg/dL Creatinine 1.55 H (0.4-1.4) mg/dL Est GFR (Non-Af Amer) 47 L (60-130) mL/min BUN/Creatinine Ratio 41.3 H (9.0-21.6) Random Glucose 125 H (70-110) mg/dL ALT 17 L (19-67) U/L Alkaline Phosphatase 37 L (50-170) U/L Total Protein 5.3 L (6.2-8.2) gm/dL Albumin 2.8 L (3.4-5.0) gm/dl Stool Occult Blood Crossmatch See Detail 11/30/19 11/30/19 Range/Units 06:30 06:43 RBC (4.7-6.0) M/mm3 Hgb (13.5-18.0) gm/dL Hct (42.0-52.0) % MCH (27-31) pg RDW (11.5-14.0) % Immature Gran % (Auto) (0.001-0.429) % Eosinophils % (0.0-3.0) % Lymphocytes # (1.5-3.5) k/mm3 PT 11.4 H (9.1-10.7) Seconds INR (Anticoag Therapy) 1.16 H (0.92-1.08) INR PTT ([place]) 22.1 L (24-32) Seconds Chloride (97-106) mmol/L BUN (6-23) mg/dL Creatinine (0.4-1.4) mg/dL Est GFR (Non-Af Amer) (60-130) mL/min BUN/Creatinine Ratio (9.0-21.6) Random Glucose (70-110) mg/dL ALT (19-67) U/L Alkaline Phosphatase (50-170) U/L Total Protein (6.2-8.2) gm/dL Albumin (3.4-5.0) gm/dl Stool Occult Blood Positive H Crossmatch Laboratory Results WBC 5.4 K/mm3 (4.0-10.5) 11/30/19 06:30 RBC 2.03 M/mm3 (4.7-6.0) L 11/30/19 06:30 Hgb 6.4 gm/dL (13.5-18.0) L* D 11/30/19 06:30 Hct 19.4 % (42.0-52.0) L* D 11/30/19 06:30 MCV 95.6 fl (78-100) 11/30/19 06:30 MCH 31.5 pg (27-31) H 11/30/19 06:30 MCHC 33.0 g/dl (32-36) 11/30/19 06:30 RDW 15.4 % (11.5-14.0) H 11/30/19 06:30 Plt Count 160 K/mm3 (150-450) 11/30/19 06:30 MPV 10.6 fl (8-11.3) 11/30/19 06:30 Immature Gran % (Auto) 0.60 % (0.001-0.429) H 11/30/19 06:30 Immature Gran # (Auto) 0.03 K/mm3 (0.000-0.0310) 11/30/19 06:30 Neutrophils % 64.0 % (42-75.0) 11/30/19 06:30 Lymphocytes % 24.2 % (20-51) 11/30/19 06:30 Monocytes % 7.8 % (0.0-9) 11/30/19 06:30 Eosinophils % 3.2 % (0.0-3.0) H 11/30/19 06:30 Basophils % 0.2 % (0.0-1.0) 11/30/19 06:30 Nucleated RBC % 0.0 k/mm3 (0-1) 11/30/19 06:30 Neutrophils # 3.5 K/mm3 (1.3-6.0) 11/30/19 06:30 Lymphocytes # 1.30 k/mm3 (1.5-3.5) L 11/30/19 06:30 Monocytes # 0.4 k/mm3 (0.0-1.0) 11/30/19 06:30 Eosinophils # 0.2 k/mm3 (0.0-0.7) 11/30/19 06:30 Absolute Basophils 0.0 k/mm3 (0.0-0.1) 11/30/19 06:30 PT 11.4 Seconds (9.1-10.7) H 11/30/19 06:30 INR (Anticoag Therapy) 1.16 INR (0.92-1.08) H 11/30/19 06:30 PTT ([place]) 22.1 Seconds (24-32) L 11/30/19 06:30 Sodium 141 mmol/L (132-142) 11/30/19 06:30 Plasma Sodium 141 mmol/L (130-142) 11/30/19 06:30 Potassium 4.4 mmol/L (3.4-4.6) 11/30/19 06:30 Chloride 108 mmol/L (97-106) H 11/30/19 06:30 Carbon Dioxide 24.2 mmol/L (24-32.6) 11/30/19 06:30 Anion Gap 13.2 mmol/L (6.8-13.8) 11/30/19 06:30 BUN 64 mg/dL (6-23) H D 11/30/19 06:30 Creatinine 1.55 mg/dL (0.4-1.4) H 11/30/19 06:30 Est GFR (Non-Af Amer) 47 mL/min (60-130) L 11/30/19 06:30 BUN/Creatinine Ratio 41.3 (9.0-21.6) H 11/30/19 06:30 Random Glucose 125 mg/dL (70-110) H 11/30/19 06:30 Calcium 7.9 mg/dL (7.9-10.9) 11/30/19 06:30 Calcium Adj for Albumin 8.5 mg/dL (8.4-10.2) 11/30/19 06:30 Total Bilirubin 0.3 mg/dL (0.0-1.1) 11/30/19 06:30 AST 10 U/L (0-48) 11/30/19 06:30 ALT 17 U/L (19-67) L 11/30/19 06:30 Alkaline Phosphatase 37 U/L (50-170) L 11/30/19 06:30 Total Protein 5.3 gm/dL (6.2-8.2) L 11/30/19 06:30 Albumin 2.8 gm/dl (3.4-5.0) L 11/30/19 06:30 Stool Occult Blood Positive H 11/30/19 06:43 Blood Type A Positive 11/30/19 06:30 Antibody Screen Negative 11/30/19 06:30 Crossmatch See Detail 11/30/19 06:30 Assessment/Plan - Assessment/Plan (1) Symptomatic anemia Assessment: Hemoglobin was 6.4 today. 1 unit PRBCs is currently being started. Will recheck hemoglobin an hour after that transfusion has completed. Depending on the frequency of bowel movements, will recheck hemoglobin this evening or in the morning. Problem: Acute (2) Upper GI bleed Assessment: His NSAID is been held, and this is the likely source. He is receiving 1 unit PRBCs. If he were to become hemodynamically unstable, will consult surgery. We will continue IV Protonix. Since he appears well and his vitals are okay, can start a clear liquid diet with lunch today. If he is not getting an endoscopy, can start sucralfate on discharge. Problem: Acute (3) Hypertension Assessment: He was prescribed atenolol and lisinopril. His blood pressure is not significantly elevated, and as he is symptomatically anemic, will hold the lisinopril. Can resume atenolol tonight after he is received blood products. Problem: Chronic (4) Chronic renal disease, stage 3, moderately decreased glomerular filtration rate (GFR) between 30-59 mL/min/1.73 square meter Assessment: His GFR appears to be in the low 50s at baseline. GFR today of 47, creatinine 1.55. Will do a clear liquid diet today due to his GI bleed, but if he is unable to maintain p.o. hydration will administer fluids. Problem: Chronic (5) Hyperlipidemia Assessment: Continue home simvastatin. Problem: Chronic
[2019-11-30] MEDS ORDERED: FUROSEMIDE 10 MG/ML VIAL ONE (10:57)
[2019-11-30 14:51] LABS: Hematocrit 27.9 % (42.0-52.0); Hemoglobin 9.3 gm/dL (13.5-18.0)
[2019-11-30] MEDS: ATENOLOL 50 MG TABLET PO SCH (16:54)
[2019-11-30 20:19] LABS: Hematocrit 26.7 % (42.0-52.0); Hemoglobin 8.9 gm/dL (13.5-18.0)
[2019-11-30] MEDS ORDERED: LISINOPRIL 10 MG TABLET ONE (20:35)
[2019-11-30] MEDS ORDERED: SIMVASTATIN 20 MG TABLET PO SCH (21:00)
[2019-11-30] MEDS ORDERED: LISINOPRIL 20 MG TABLET PO SCH (21:00)
[2019-12-01 06:34] LABS: Hematocrit 25.4 % (42.0-52.0); Hemoglobin 8.4 gm/dL (13.5-18.0); Mean Cell Volume 92.7 fl (78-100); Mean Corpuscular Hemoglobin 30.7 pg (27-31); Mean Corpuscular Hgb Conc 33.1 g/dl (32-36); Mean Platelet Volume 10.4 fl (8-11.3); Neutrophil # 3.8 K/mm3 (1.3-6.0); Neutrophil % 58.8 % (42-75.0); Platelet Count 163 K/mm3 (150-450); Red Blood Count 2.74 M/mm3 (4.7-6.0); Red Cell Distribution Width 15.9 % (11.5-14.0); White Blood Count 6.5 K/mm3 (4.0-10.5)
[2019-12-01 06:47] LABS: Albumin * 3.1 gm/dl (3.4-5.0); Anion Gap 13.5 mmol/L (6.8-13.8); BUN/Creatinine Ratio 32.3 (9.0-21.6); Bilirubin, Total 0.5 mg/dL (0.0-1.1); Ca. Corrected For Albumin 8.3 mg/dL (8.4-10.2); Calcium * 7.9 mg/dL (7.9-10.9); Carbon Dioxide 26.1 mmol/L (24-32.6); Potassium 3.6 mmol/L (3.4-4.6); Total Protein 5.7 gm/dL (6.2-8.2)
[2019-12-01] MEDS ORDERED: ATENOLOL 100 MG TABLET PO SCH (09:00)
[2019-12-01] MEDS ORDERED: PANTOPRAZOLE SODIUM 40 MG in NORMAL SALINE 100 ML IV SCH (09:45)
--- NOTE | 2019-12-01 09:47 | PN ---
Subjective - Date and Time Seen Date: 12/01/19 Time: 09:35 Subjective Narrative: He reports feeling better after his transfusion of 2 U PRBC. No longer having dizziness with ambulation. He is tolerating the clear liquid diet. Most recent BM was yesterday evening, and was black. Objective - Review of Systems Generalized/Overall Review: Denies: Weakness Respiratory: Denies: Shortness of Breath Cardiac: Denies: Chest Pain, Edema Abdominal: Reports: Melena. Denies: Nausea, Vomiting Genitourinary Symptoms: Reports: No Symptoms Reported Musculoskeletal Complaints: Reports: No Symptoms Reported Neurological: Reports: No Symptoms Reported Skin: Reports: No Symptoms Reported - Vitals Vitals: Last Vital Signs Temp 36.4 C 12/01/19 06:22 Pulse 73 12/01/19 09:07 Resp 18 12/01/19 06:22 BP 140/64 12/01/19 09:07 Pulse Ox 99 12/01/19 06:22 - Abnormal Lab Findings Abnormal Lab Findings: Abnormal Lab Results 11/30/19 11/30/19 11/30/19 Range/Units 06:30 14:46 20:15 RBC (4.7-6.0) M/mm3 Hgb 9.3 L 8.9 L (13.5-18.0) gm/dL Hct 27.9 L 26.7 L (42.0-52.0) % RDW (11.5-14.0) % Eosinophils % (0.0-3.0) % BUN (6-23) mg/dL Creatinine (0.4-1.4) mg/dL Est GFR (Non-Af Amer) (60-130) mL/min BUN/Creatinine Ratio (9.0-21.6) Random Glucose (70-110) mg/dL Calcium Adj for Albumin (8.4-10.2) mg/dL ALT (19-67) U/L Alkaline Phosphatase (50-170) U/L Total Protein (6.2-8.2) gm/dL Albumin (3.4-5.0) gm/dl Crossmatch See Detail 12/01/19 12/01/19 Range/Units 06:25 06:25 RBC 2.74 L (4.7-6.0) M/mm3 Hgb 8.4 L (13.5-18.0) gm/dL Hct 25.4 L (42.0-52.0) % RDW 15.9 H (11.5-14.0) % Eosinophils % 3.5 H (0.0-3.0) % BUN 51 H (6-23) mg/dL Creatinine 1.58 H (0.4-1.4) mg/dL Est GFR (Non-Af Amer) 46 L (60-130) mL/min BUN/Creatinine Ratio 32.3 H (9.0-21.6) Random Glucose 112 H (70-110) mg/dL Calcium Adj for Albumin 8.3 L (8.4-10.2) mg/dL ALT 16 L (19-67) U/L Alkaline Phosphatase 36 L (50-170) U/L Total Protein 5.7 L (6.2-8.2) gm/dL Albumin 3.1 L (3.4-5.0) gm/dl Crossmatch - Exam Constitutional: Present: Alert, Cooperative, No distress Respiratory: Present: normal breath sounds, no respiratory distress Cardiovascular/Chest: Present: regular rate, rhythm Abdomen: Present: soft, nontender Extremity: Absent: lower extremity edema Appearance: Present: appropriate appearance Eye contact: Present: cooperative, good eye contact Assessment/Plan - Problems/Diagnosis (1) Anemia due to gastrointestinal blood loss Problem: Acute (2) Upper GI bleed Problem: Acute Narrative: He received 2 units PRBCs yesterday and feels much better. Hemoglobin has gone from 9.3 last night to 8.4 this morning. Additional repeat H&H pending this afternoon. He has not had a bowel movement since last night. We will continue the IV pantoprazole, and switch to p.o. on DC. If this afternoon's hemoglobin is 8 or greater, okay to DC. Discussed with him the likelihood he will continue to have dark stools for a few days. Also encouraged a clear liquid diet for a short time, which she had already planned on doing. Discontinue meloxicam, which is likely source of his bleeding. (3) Symptomatic anemia Problem: Resolved Narrative: No longer symptomatic. Hemoglobin 8.4 this morning. Repeat pending for this afternoon. Due to upper GI bleed. (4) Hypertension Problem: Chronic Narrative: Continue home lisinopril and atenolol. (5) Chronic renal disease, stage 3, moderately decreased glomerular filtration rate (GFR) between 30-59 mL/min/1.73 square meter Problem: Chronic (6) Hyperlipidemia Problem: Chronic
[2019-12-01 15:04] LABS: Hematocrit 25.2 % (42.0-52.0); Hemoglobin 8.2 gm/dL (13.5-18.0)
--- NOTE | 2019-12-01 16:13 | DS ---
(1) Anemia due to gastrointestinal blood loss Problem: Acute (2) Upper GI bleed Problem: Acute (3) Symptomatic anemia Problem: Resolved (4) Hypertension Problem: Chronic (5) Chronic renal disease, stage 3, moderately decreased glomerular filtration rate (GFR) between 30-59 mL/min/1.73 square meter Problem: Chronic (6) Hyperlipidemia Problem: Chronic Date of Discharge:: 12/01/19 Hospital Course: Patient returned to the ED one day after being DC'd from our facility for a GI bleed. He reports feeling fine when he went home. Had a hamburger for supper, and woke overnight with abdominal pain and had black stools. He was significantly dizzy, and had difficulty ambulating to the bathroom. Any exertion caused shortness of breath. In the ED, his hemoglobin was 6.4. Vitals were normal. He was given 2 U PRBC, and felt better. His hemoglobin remained greater than 8 after his transfusion, and was 8.2 the afternoon of DC. His last BM was the evening of admission. He reports he will be eating soups for a few days, and will DC with pantoprazole. Procedures Performed: none Results and Findings: Lab Pending Results 11/30/19 06:30: WBC 5.4, RBC 2.03 L, Hgb 6.4 L* D, Hct 19.4 L* D, MCV 95.6, MCH 31.5 H, MCHC 33.0, RDW 15.4 H, Plt Count 160, MPV 10.6, Immature Gran % (Auto) 0.60 H, Immature Gran # (Auto) 0.03, Neutrophils % 64.0, Lymphocytes % 24.2, Monocytes % 7.8, Eosinophils % 3.2 H, Basophils % 0.2, Nucleated RBC % 0.0, Neutrophils # 3.5, Lymphocytes # 1.30 L, Monocytes # 0.4, Eosinophils # 0.2, Absolute Basophils 0.0 11/30/19 06:30: Sodium 141, Plasma Sodium 141, Potassium 4.4, Chloride 108 H, Carbon Dioxide 24.2, Anion Gap 13.2, BUN 64 H D, Creatinine 1.55 H, Est GFR (Non-Af Amer) 47 L, BUN/Creatinine Ratio 41.3 H, Random Glucose 125 H, Calcium 7.9, Calcium Adj for Albumin 8.5, Total Bilirubin 0.3, AST 10, ALT 17 L, Alkaline Phosphatase 37 L, Total Protein 5.3 L, Albumin 2.8 L 11/30/19 06:30: Blood Type A Positive, Antibody Screen Negative, Crossmatch See Detail 11/30/19 06:30: PT 11.4 H, INR (Anticoag Therapy) 1.16 H, PTT ([place]) 22.1 L 11/30/19 06:43: Stool Occult Blood Positive H 11/30/19 14:46: Hgb 9.3 L, Hct 27.9 L 11/30/19 20:15: Hgb 8.9 L, Hct 26.7 L 12/01/19 06:25: WBC 6.5 D, RBC 2.74 L, Hgb 8.4 L, Hct 25.4 L, MCV 92.7, MCH 30.7, MCHC 33.1, RDW 15.9 H, Plt Count 163, MPV 10.4, Immature Gran % (Auto) 0.30, Immature Gran # (Auto) 0.02, Neutrophils % 58.8, Lymphocytes % 28.2, Monocytes % 8.6, Eosinophils % 3.5 H, Basophils % 0.6, Nucleated RBC % 0.0, Neutrophils # 3.8, Lymphocytes # 1.83, Monocytes # 0.6, Eosinophils # 0.2, Absolute Basophils 0.0 12/01/19 06:25: Sodium 141, Plasma Sodium 141, Potassium 3.6, Chloride 105, Carbon Dioxide 26.1, Anion Gap 13.5, BUN 51 H, Creatinine 1.58 H, Est GFR (Non- Af Amer) 46 L, BUN/Creatinine Ratio 32.3 H, Random Glucose 112 H, Calcium 7.9, Calcium Adj for Albumin 8.3 L, Total Bilirubin 0.5, AST 13, ALT 16 L, Alkaline Phosphatase 36 L, Total Protein 5.7 L, Albumin 3.1 L 12/01/19 14:57: Hgb 8.2 L, Hct 25.2 L Discharge Location: Home Disposition: Home self-care Condition: Fair Discharge Activity: Activity as tolerated Discharge Diet: Clear Liquids - for 2-3 days Referrals: Ceferino Rainey DO [Primary Care Provider] - (He has a previously scheduled visit with his PCP on 12/04.) Prescriptions (Any new or edited meds): Pantoprazole Sodium 40 mg PO DAILY #30 tablet. Transmission Status: Pending to [facility] #[id number] Complete Home Medications List: Complete Home Medication List: aspirin 81 mg tablet,delayed release 81 mg PO DAILY 05/27/19 simvastatin 20 mg tablet 20 mg PO HS #30 tab 10/15/19 Atenolol [Tenormin] 50 mg PO QPM 11/26/19 Atenolol [Tenormin] 100 mg PO QAM 11/26/19 Lisinopril 20 mg PO HS 11/26/19 Pantoprazole Sodium 40 mg PO DAILY #30 tablet. 12/01/19
[2019-12-01] MEDS: ATENOLOL 50 MG TABLET PO SCH (16:16)
[2019-12-01 16:30] VITALS: BP 139/66
== END 2019-12-01 17:25 | disposition home or self-care (01) | DRG 378 ==
LOC: ER 06:09 → MS 06:59
PROVIDERS: ADMIT Family Medicine; ATTEND Family Medicine
CPT/HCPCS: 36415; 80053; 82272; 85014; 85018; 85025; 85610; 85730; 86850; 99284; 99285; P9016

== ENCOUNTER 2021-02-01 09:23 | Observation (INO) ==
--- NOTE | 2021-02-01 10:19 | ERNOTE ---
Abdominal HPI - General Chief Complaint: Abdominal Pain Time Seen by Provider: 02/01/21 10:00 Source: patient Exam Limitations: no limitations - Immun/Allergies/Home Medications Immunizatons: IMMUNIZATION HX Immunizations Up to Date Yes History of Influenza Vaccine Yes Hx Pneumococcal Vaccination Yes Allergies/Adverse Reactions: Allergies Penicillins Allergy (Mild, Verified 07/28/20 13:23) Hives Home Medications: HOME MEDICATIONS aspirin 81 mg tablet,delayed release 81 mg PO DAILY 05/27/19 [Last Taken Unknown] Atenolol [Tenormin] 50 mg PO QPM 11/26/19 [Last Taken Unknown] amlodipine 5 mg tablet 5 mg PO BID #60 tab 10/20/20 [Last Taken Unknown] simvastatin 20 mg tablet 20 mg PO HS #30 tab 10/20/20 [Last Taken Unknown] Atenolol [Tenormin] 100 mg PO DAILY 02/01/21 [Last Taken Unknown] Chlorthalidone [Hygroton] 12.5 mg PO DAILY 02/01/21 [Last Taken Unknown] Lisinopril [Zestril] 20 mg PO HS 02/01/21 [Last Taken Unknown] Spironolactone 25 mg PO DAILY 02/01/21 [Last Taken Unknown] - History of Present Illness Narrative: Patient is coming to the ER for diarrhea. He states he had diarrhea for about 3 weeks, he has between 2-4 watery bowel movements a day, cramping pain prior to the bowel movement, minimal pain in between. He denies any nausea or vomiting, has been able to eat but has intermittent anorexia, he states he last 10 pounds. He was started on some new blood pressure medication in about the same timeframe, is not completely sure if the symptoms started before after the new medications. He denies any recent antibiotic use, not aware of any unusual f oods. He has not been evaluated for diarrhea yet. Timing: intermittent Quality: mild, cramping Activities at Onset: none Review of Systems - Review of Systems Constitutional: Present: weight loss. Absent: recent illness, fever ENT: Absent: nasal drainage Respiratory: Absent: shortness of breath, cough Gastrointestinal/Abdominal: Present: See HPI Genitourinary: Absent: frequency, dysuria Skin: Absent: rash Neurological: Absent: headache Medical History (Last Reviewed 02/01/21 @ 10:18 by Yoana Farnsworth MD) Hypertension (Chronic) Hyperlipidemia (Chronic) Chronic renal disease, stage 3, moderately decreased glomerular filtration rate (GFR) between 30-59 mL/min/1.73 square meter (Chronic) PAD (peripheral artery disease) (Chronic) CAD (coronary artery disease) (Chronic) BPH (benign prostatic hyperplasia) (Chronic) Schatzki's ring Anemia due to gastrointestinal blood loss GI bleed GI bleeding Gastric ulcer Gastrointestinal bleed Hyperkalemia Symptomatic anemia Upper GI bleed Weakness Testicular cyst removed Acute kidney injury History of duodenal ulcer Surgical History: Surgical History (Last Reviewed 02/01/21 @ 10:18 by Yoana Farnsworth MD) History of esophagogastroduodenoscopy (EGD) Onset Date: ~12/2018 History of hip replacement Hx of heart artery stent Family History: Family History (Last Reviewed 02/01/21 @ 09:48 by Lexii Johnson RN) Father PAD (peripheral artery disease) Heart disease Social History: (Last Reviewed 02/01/21 @ 09:48 by Lexii Johnson RN) Tobacco: Smoking Status: Former smoker Alcohol: alcohol intake: current alcohol intake frequency: a few times a week Substance Use: substance use type: does not use Physical Exam - Physical Exam General Appearance: Present: wd/wn, alert, no apparent distress Head Exam: Present: normal inspection Respiratory: Present: no respiratory distress, normal breath sounds, no accessory muscle use, lungs clear Cardiovascular/Chest: Present: regular rate, rhythm, no murmur Gastrointestinal/Abdominal: Present: nontender, nondistended, soft, abnormal bowel sounds - Increased Back Exam: Present: no CVA tenderness Extremity Exam: Present: no edema Neurological Exam: Present: alert, oriented, normal mood/affect Skin Exam: Present: normal color, warm/dry Progress - Results and Orders Patient's Lab Results:: I have reviewed the patient's lab results. - Vital Signs Patient's Vital Signs:: I have reviewed the patient's vital signs. Vital Signs: Vital Signs 02/01/21 09:23 Temperature 36.2 C Pulse Rate 69 Respiratory Rate 19 Blood Pressure 122/62 O2 Sat by Pulse Oximetry 97 - EKG EKG #1 EKG: NSR, other - Peaked T's EKG read: Interp. by me - X-Ray X-Ray #1 X-Ray: abdomen Interpretation: Reviewed by me - POSSIBILITY OF MILD OR EARLY UNDERLYING ILEUS OR PARTIAL OBSTRUCTION WITH NO FREE AIR. CONTINUED CLINICAL AND LAB CORRELATION, WITH FOLLOW-UP IMAGING CONCERN WARRANTS IS RECOMMENDED. - Progress/Reassessment Chief Complaint: Abdominal Pain Progress Note-Subjective: 02/01/21 11:15 discussed test results, suggested admission for renal failure and dehydration 02/01/21 11:25 02/01/21 11:33 discussed with sam Nye to admit for renal failure and hyperkalemia will start fluids and give one dose of D50 and insulin 10Units Departure Clinical Impression: Renal failure (ARF), acute on chronic, Hyperkalemia - Departure Disposition: Still a patient Condition: Good
[2021-02-01 10:31] LABS: Hematocrit 48.5 % (42.0-52.0); Hemoglobin 15.9 gm/dL (13.5-18.0); Mean Cell Volume 91.7 fl (78-100); Mean Corpuscular Hemoglobin 30.1 pg (27-31); Mean Corpuscular Hgb Conc 32.8 g/dl (32-36); Mean Platelet Volume 11.2 fl (8-11.3); Neutrophil # 6.1 K/mm3 (1.3-6.0); Neutrophil % 75.7 % (42-75.0); Platelet Count 208 K/mm3 (150-450); Red Blood Count 5.29 M/mm3 (4.7-6.0); Red Cell Distribution Width 13.2 % (11.5-14.0); White Blood Count 8.1 K/mm3 (4.0-10.5)
[2021-02-01 10:46] LABS: Albumin * 4.8 gm/dl (3.4-5.0); Anion Gap 17.5 mmol/L (6.8-13.8); BUN/Creatinine Ratio 28.7 (9.0-21.6); Bilirubin, Total 0.3 mg/dL (0.0-1.1); Ca. Corrected For Albumin 7.9 mg/dL (8.4-10.2); Calcium * 8.9 mg/dL (7.9-10.9); Carbon Dioxide 19.7 mmol/L (24-32.6); Potassium 6.2 mmol/L (3.4-4.6); Total Protein 8.4 gm/dL (6.2-8.2)
[2021-02-01] MEDS ORDERED: DEXTROSE 50%-WATER 50 ML SYRG IV ONE (11:41)
[2021-02-01] MEDS ORDERED: NORMAL SALINE 1,000 ML IV ONE (11:41)
[2021-02-01] MEDS ORDERED: INSULIN REGULAR, HUMAN 100 UNITS/ML VIAL IV ONE (11:43)
--- NOTE | 2021-02-01 12:44 | HP ---
Chief Complaint - Chief Complaint Date of Service: 02/01/21 Time of Service: 12:11 Chief Complaint: Diarrhea and weakness x3 weeks History of Present Illness: 70-year-old male with a past medical history of hypertension, CKD 3, hyperl ipidemia, peripheral artery disease, Schatzki's ring, upper GI bleed, CAD, BPH, anemia due to GI blood loss, hyperkalemia presents from home with complaints of weakness and diarrhea for the past 3 weeks. He states his diarrhea began around the time he was evaluated by nephrology and started on chlorthalidone and spironolactone. He had been sent to the auto mechanics teacher, Dr. Hope by his primary care physician for evaluation of uncontrolled hypertension. His blood pressure improved with the addition of the 2 medications but diarrhea persisted. He states he has 3 watery brown bowel movements a day. He has been using 1-2 Imodium's for the past 2 days which has decreased his number of bowel movements from 5 or 6-3. He has a decreased appetite and poor oral intake. He states he has no difficulty urinating. In the ER today he is found to have stable vitals, sodium of 131, potassium of 6.2, GFR of 22, his baseline is typically 41-54, creatinine of 3.03, baseline of 1.39-1.74, BUN of 87, baseline of 30-64. Abdominal x-ray shows possibility of mild or early underlying ileus or partial obstruction with no free air. Per the ER physician, Dr. Mars, general surgery reviewed the case and stated he did not need to be consulted for this case. In the ER he is receiving insulin with dextrose and IV fluid with normal saline. He is being admitted for management of acute kidney injury. Medical History (Last Reviewed 02/01/21 @ 14:55 by Delia Fleming RN) Hypertension (Chronic) Hyperlipidemia (Chronic) Chronic renal disease, stage 3, moderately decreased glomerular filtration rate (GFR) between 30-59 mL/min/1.73 square meter (Chronic) PAD (peripheral artery disease) (Chronic) CAD (coronary artery disease) (Chronic) BPH (benign prostatic hyperplasia) (Chronic) Schatzki's ring Anemia due to gastrointestinal blood loss GI bleed GI bleeding Gastric ulcer Gastrointestinal bleed Hyperkalemia Symptomatic anemia Upper GI bleed Weakness Testicular cyst removed Acute kidney injury History of duodenal ulcer Surgical History: Surgical History (Last Reviewed 02/01/21 @ 14:55 by Delia Fleming RN) History of esophagogastroduodenoscopy (EGD) Onset Date: ~12/2018 History of hip replacement Hx of heart artery stent Family History: Family History (Last Reviewed 02/01/21 @ 14:56 by Delia Fleming RN) Father PAD (peripheral artery disease) Heart disease Social History: (Last Reviewed 02/01/21 @ 14:57 by Delia Fleming RN) Social History: snf: No Marital status: lives independently: Yes household members: spouse current occupational status: retired Highest level of school completed/degree received: Bachelor's degree Service: No Tobacco: Smoking Status: Former smoker Alcohol: alcohol intake: current Alcohol type: wine alcohol intake frequency: a few times a week Substance Use: substance use type: does not use Dietary Habits: caffeine: No Review Of Systems (GEN) - Review of Systems Generalized/Overall Review: Present: Weakness. Absent: Fever Respiratory: Absent: Shortness of Breath Cardiac: Absent: Chest Pain Abdominal: Present: Abdominal Pain - Mild, intermittent, Diarrhea. Absent: Nausea Misc: All systems neg except as marked Immunizations: IMMUNIZATION HX Immunizations Up to Date Yes History of Influenza Vaccine Yes Hx Pneumococcal Vaccination Yes Allergies/Adverse Reactions: Allergies Allergy/AdvReac Type Severity Reaction Status Date / Time Penicillins Allergy Mild Hives Verified 02/01/21 14:57 Home Medications: HOME MEDICATIONS aspirin 81 mg tablet,delayed release 81 mg PO DAILY 05/27/19 [Last Taken Unknown] Atenolol [Tenormin] 50 mg PO QPM 11/26/19 [Last Taken Unknown] amlodipine 5 mg tablet 5 mg PO BID #60 tab 10/20/20 [Last Taken Unknown] simvastatin 20 mg tablet 20 mg PO HS #30 tab 10/20/20 [Last Taken Unknown] Atenolol [Tenormin] 100 mg PO DAILY 02/01/21 [Last Taken Unknown] Chlorthalidone [Hygroton] 12.5 mg PO DAILY 02/01/21 [Last Taken Unknown] Lisinopril [Zestril] 20 mg PO HS 02/01/21 [Last Taken Unknown] Spironolactone 25 mg PO DAILY 06/28/21 [Last Taken Unknown] Exam - Exam Vital Signs: Vital Signs - Last Taken Temp 36.2 C 02/01/21 09:47 Pulse 65 02/01/21 11:22 Resp 17 02/01/21 11:22 BP 129/67 02/01/21 11:22 Pulse Ox 100 02/01/21 11:22 Constitutional: Present: Alert, Cooperative, Well developed, Well nourished, No distress, Elderly ENT Exam: Present: hearing grossly normal, moist mucous membranes Eye Exam: bilateral eye: normal inspection, PERRL, EOMI Neck: Present: non-tender, supple. Absent: lymphadenopathy (R), lymphadenopathy (L) Back Exam: Present: normal inspection, no CVA tenderness, no vertebral tenderness Respiratory: Present: lungs clear, no respiratory distress, no accessory muscle use, No wheezing. Absent: crackles, rhonchi Cardiovascular/Chest: Present: normal peripheral pulses, regular rate, rhythm, no edema, no murmur Peripheral Pulses: dorsalis-pedis (R): 1+, dorsalis-pedis (L): 1+ Abdomen: Present: Normal bowel sounds, soft, nontender Extremity: Present: no pedal edema Skin Exam: Present: normal color, warm/dry Neurologic: Present: alert, normal mood/affect Appearance: Present: appropriate appearance, appropriate insight Eye contact: Present: cooperative Thoughts: Present: normal thought pattern, normal mood /affect Diagnostic Studies: Abnormal Lab Results 02/01/21 02/01/21 Range/Units 10:26 10:26 Neutrophils % 75.7 H (42-75.0) % Lymphocytes % 13.9 L (20-51) % Neutrophils # 6.1 H (1.3-6.0) K/mm3 Lymphocytes # 1.13 L (1.5-3.5) k/mm3 Sodium 131 L (132-142) mmol/L Potassium 6.2 H D (3.4-4.6) mmol/L Carbon Dioxide 19.7 L (24-32.6) mmol/L Anion Gap 17.5 H (6.8-13.8) mmol/L BUN 87 H D (6-23) mg/dL Creatinine 3.03 H D (0.4-1.4) mg/dL Est GFR (Non-Af Amer) 22 L D (60-130) mL/min BUN/Creatinine Ratio 28.7 H (9.0-21.6) Random Glucose 115 H (70-110) mg/dL Calcium Adj for Albumin 7.9 L (8.4-10.2) mg/dL ALT 133 H (19-67) U/L Total Protein 8.4 H (6.2-8.2) gm/dL Laboratory Results WBC 8.1 K/mm3 (4.0-10.5) 02/01/21 10:26 RBC 5.29 M/mm3 (4.7-6.0) 02/01/21 10:26 Hgb 15.9 gm/dL (13.5-18.0) 02/01/21 10:26 Hct 48.5 % (42.0-52.0) 02/01/21 10: MCV 91.7 fl (78-100) 02/01/21 10:26 MCH 30.1 pg (27-31) 02/01/21 10: MCHC 32.8 g/dl (32-36) 02/01/21 10:26 RDW 13.2 % (11.5-14.0) 02/01/21 10:26 Plt Count 208 K/mm3 (150-450) 02/01/21 10:26 MPV 11.2 fl (8-11.3) 02/01/21 10:26 Immature Gran % (Auto) 0.40 % (0.001-0.429) 02/01/21 10: Immature Gran # (Auto) 0.03 K/mm3 (0.000-0.0310) 02/01/21 10:26 Neutrophils % 75.7 % (42-75.0) H 02/01/21 10:26 Lymphocytes % 13.9 % (20-51) L 02/01/21 10:26 Monocytes % 7.9 % (0.0-9) 02/01/21 10:26 Eosinophils % 1.5 % (0.0-3.0) 02/01/21 10: Basophils % 0.6 % (0.0-1.0) 02/01/21 10:26 Nucleated RBC % 0.0 k/mm3 (0-1) 02/01/21 10:26 Neutrophils # 6.1 K/mm3 (1.3-6.0) H 02/01/21 10:26 Lymphocytes # 1.13 k/mm3 (1.5-3.5) L 02/01/21 10:26 Monocytes # 0.6 k/mm3 (0.0-1.0) 02/01/21 10:26 Eosinophils # 0.1 k/mm3 (0.0-0.7) 02/01/21 10:26 Absolute Basophils 0.1 k/mm3 (0.0-0.1) 02/01/21 10:26 Sodium 131 mmol/L (132-142) L 02/01/21 10:26 Plasma Sodium 131 mmol/L (130-142) 02/01/21 10:26 Potassium 6.2 mmol/L (3.4-4.6) H D 02/01/21 10:26 Chloride 100 mmol/L (97-106) 02/01/21 10:26 Carbon Dioxide 19.7 mmol/L (24-32.6) L 02/01/21 10:26 Anion Gap 17.5 mmol/L (6.8-13.8) H 02/01/21 10:26 BUN 87 mg/dL (6-23) H D 02/01/21 10:26 Creatinine 3.03 mg/dL (0.4-1.4) H D 02/01/21 10:26 Est GFR (Non-Af Amer) 22 mL/min (60-130) L D 02/01/21 10:26 BUN/Creatinine Ratio 28.7 (9.0-21.6) H 02/01/21 10:26 Random Glucose 115 mg/dL (70-110) H 02/01/21 10:26 Calcium 8.9 mg/dL (7.9-10.9) 02/01/21 10:26 Calcium Adj for Albumin 7.9 mg/dL (8.4-10.2) L 02/01/21 10:26 Total Bilirubin 0.3 mg/dL (0.0-1.1) 02/01/21 10:26 AST 42 U/L (0-48) 02/01/21 10:26 ALT 133 U/L (19-67) H 02/01/21 10:26 Alkaline Phosphatase 62 U/L (50-170) 02/01/21 10:26 Total Protein 8.4 gm/dL (6.2-8.2) H 02/01/21 10:26 Albumin 4.8 gm/dl (3.4-5.0) 02/01/21 10:26 Lipase 380 U/L (73-393) 02/01/21 10:26 Assessment/Plan - Narrative Narrative: 70-year-old male with a past medical history of hypertension, CKD 3, hyperlipidemia, peripheral artery disease, Schatzki's ring, upper GI bleed, CAD, BPH, anemia due to GI blood loss, hyperkalemia presents from home with complaints of weakness and diarrhea for the past 3 weeks. He states his diarrhea began around the time he was evaluated by nephrology and started on chlorthalidone and spironolactone. He had been sent to the auto mechanics teacher, Dr. Hope by his primary care physician for evaluation of uncontrolled hypertension. His blood pressure improved with the addition of the 2 medications but diarrhea persisted. He states he has 3 watery brown bowel movements a day. He has been using 1-2 Imodium's for the past 2 days which has decreased his number of bowel movements from 5 or 6-3. He has a decreased appetite and poor oral intake. He states he has no difficulty urinating. In the ER today he is found to have stable vitals, sodium of 131, potassium of 6.2, GFR of 22, his baseline is typically 41-54, creatinine of 3.03, baseline of 1.39-1.74, BUN of 87, baseline of 30-64. Abdominal x-ray shows possibility of mild or early underlying ileus or partial obstruction with no free air. Per the ER physician, Dr. Mars, general surgery reviewed the case and stated he did not need to be consulted for this case. In the ER he is receiving insulin with dextrose and IV fluid with normal saline. He is being admitted for management of acute kidney injury. Plan #1 continue with IV fluid hydration #2 repeat CMP at 4 PM today #3 CBC and CMP in the morning #4 hold lisinopril, spironolactone and chlorthalidone #5 resume home medications for comorbidities #6 obtain C. difficile stool culture - Assessment/Plan (1) Acute kidney injury superimposed on chronic kidney disease Problem: Acute (2) Diarrhea Problem: Acute (3) Hyperkalemia Problem: Acute (4) CAD (coronary artery disease) Problem: Chronic (5) Hypertension Problem: Chronic (6) PAD (peripheral artery disease) Problem: Chronic (7) Generalized weakness Problem: Acute
[2021-02-01 17:32] LABS: Anion Gap 18.1 mmol/L (6.8-13.8); BUN/Creatinine Ratio 31.5 (9.0-21.6); Bilirubin, Total 0.3 mg/dL (0.0-1.1); Ca. Corrected For Albumin 7.8 mg/dL (8.4-10.2); Calcium * 8.1 mg/dL (7.9-10.9); Potassium 6.1 mmol/L (3.4-4.6)
[2021-02-01] MEDS: ATENOLOL 50 MG TABLET PO SCH (17:35)
[2021-02-01] MEDS: NORMAL SALINE 1,000 ML IV PRN (18:08)
[2021-02-01] MEDS: amLODIPine BESYLATE 5 MG TABLET PO SCH (20:42)
[2021-02-01] MEDS: SIMVASTATIN 20 MG TABLET PO SCH (20:42)
[2021-02-01 22:18] LABS: Albumin * 3.7 gm/dl (3.4-5.0); Anion Gap 18.9 mmol/L (6.8-13.8); BUN/Creatinine Ratio 34.5 (9.0-21.6); Bilirubin, Total 0.3 mg/dL (0.0-1.1); Ca. Corrected For Albumin 7.9 mg/dL (8.4-10.2); Carbon Dioxide 16.9 mmol/L (24-32.6); Potassium 5.8 mmol/L (3.4-4.6); Total Protein 6.6 gm/dL (6.2-8.2)
[2021-02-02] MEDS: NORMAL SALINE 1,000 ML IV PRN (00:45)
[2021-02-02 06:34] LABS: Hematocrit 40.5 % (42.0-52.0); Hemoglobin 13.5 gm/dL (13.5-18.0); Mean Cell Volume 91.4 fl (78-100); Mean Corpuscular Hemoglobin 30.5 pg (27-31); Mean Corpuscular Hgb Conc 33.3 g/dl (32-36); Neutrophil # 3.9 K/mm3 (1.3-6.0); Platelet Count 166 K/mm3 (150-450); Red Blood Count 4.43 M/mm3 (4.7-6.0); Red Cell Distribution Width 13.2 % (11.5-14.0); White Blood Count 5.7 K/mm3 (4.0-10.5)
[2021-02-02 06:51] LABS: Albumin * 3.8 gm/dl (3.4-5.0); Anion Gap 19.2 mmol/L (6.8-13.8); BUN/Creatinine Ratio 28.6 (9.0-21.6); Bilirubin, Total 0.3 mg/dL (0.0-1.1); Calcium * 8.2 mg/dL (7.9-10.9); Potassium 6.2 mmol/L (3.4-4.6); Total Protein 6.8 gm/dL (6.2-8.2)
[2021-02-02] MEDS ORDERED: INSULIN LISPRO 100 UNITS/ML VIAL SC SCH (08:15)
[2021-02-02] MEDS ORDERED: DEXTROSE 50%-WATER 50 ML SYRG IV ONE (08:16)
[2021-02-02] MEDS ORDERED: ALBUTEROL SULFATE 2.5 MG/3 ML VIAL.NEB IH ONE (08:16)
[2021-02-02] MEDS ORDERED: SODIUM POLYSTYRENE SULFON/SORB 15 G/60 ML ORAL.SUSP PO ONE ×2 (08:17→09:15)
[2021-02-02] MEDS: ASPIRIN 81 MG TABLET.DR PO SCH (08:55)
[2021-02-02] MEDS: ATENOLOL 100 MG TABLET PO SCH (08:55)
[2021-02-02] MEDS: amLODIPine BESYLATE 5 MG TABLET PO SCH ×2 (08:56→20:14)
[2021-02-02] MEDS ORDERED: NORMAL SALINE 1,000 ML IV ONE ×2 (10:48→21:30)
[2021-02-02 16:29] LABS: Anion Gap 15.5 mmol/L (6.8-13.8); BUN/Creatinine Ratio 28.6 (9.0-21.6); Calcium * 7.8 mg/dL (7.9-10.9); Carbon Dioxide 18.4 mmol/L (24-32.6); Estimated Creat Clear 40.8; Potassium 5.9 mmol/L (3.4-4.6)
[2021-02-02] MEDS: ATENOLOL 50 MG TABLET PO SCH (18:00)
[2021-02-02] MEDS: SIMVASTATIN 20 MG TABLET PO SCH (20:15)
[2021-02-02] MEDS ORDERED: LISINOPRIL 40 MG TABLET PO SCH (21:00)
--- NOTE | 2021-02-02 21:30 | PN ---
Subjective - Date and Time Seen Date: 02/02/21 Time: 21:22 Subjective Narrative: Patient feeling better today, fluids have done him well. His vitals are stable. Potassium still elevated and kidney function still above baseline. Otherwise he has no concerns. Still feels a little weak but much better. Objective - Review of Systems Generalized/Overall Review: Reports: Weakness EENTM: Reports: No Symptoms Reported Respiratory: Reports: No Symptoms Reported Cardiac: Reports: No Symptoms Reported Abdominal: Reports: No Symptoms Reported Genitourinary Symptoms: Reports: No Symptoms Reported Musculoskeletal Complaints: Reports: No Symptoms Reported Neurological: Reports: No Symptoms Reported Skin: Reports: No Symptoms Reported Endocrine: Reports: No Symptoms Reported - Vitals Vitals: Last Vital Signs Temp 35.9 C L 02/02/21 18:12 Pulse 82 02/02/21 20:14 Resp 14 02/02/21 18:12 BP 111/59 02/02/21 20:14 Pulse Ox 97 02/02/21 18:12 - Abnormal Lab Findings Abnormal Lab Findings: Abnormal Lab Results 02/01/21 02/02/21 02/02/21 Range/Units 22:00 06:30 06:30 RBC 4.43 L (4.7-6.0) M/mm3 Hct 40.5 L (42.0-52.0) % Lymphocytes % 17.4 L (20-51) % Monocytes % 11.2 H (0.0-9) % Lymphocytes # 0.99 L (1.5-3.5) k/mm3 Potassium 5.8 H 6.2 H (3.4-4.6) mmol/L Chloride 108 H (97-106) mmol/L Carbon Dioxide 16.9 L 15.0 L (24-32.6) mmol/L Anion Gap 18.9 H 19.2 H (6.8-13.8) mmol/L BUN 77 H 67 H (6-23) mg/dL Creatinine 2.23 H D 2.34 H (0.4-1.4) mg/dL Est GFR (Non-Af Amer) 31 L D 29 L (60-130) mL/min BUN/Creatinine Ratio 34.5 H 28.6 H (9.0-21.6) Calcium (7.9-10.9) mg/dL Calcium Adj for Albumin 7.9 L 8.0 L (8.4-10.2) mg/dL ALT 91 H 107 H (19-67) U/L 02/02/ Range/Units 16:00 RBC (4.7-6.0) M/mm3 Hct (42.0-52.0) % Lymphocytes % (20-51) % Monocytes % (0.0-9) % Lymphocytes # (1.5-3.5) k/mm3 Potassium 5.9 H (3.4-4.6) mmol/L Chloride 109 H (97-106) mmol/L Carbon Dioxide 18.4 L (24-32.6) mmol/L Anion Gap 15.5 H (6.8-13.8) mmol/L BUN 53 H (6-23) mg/dL Creatinine 1.85 H D (0.4-1.4) mg/dL Est GFR (Non-Af Amer) 38 L D (60-130) mL/min BUN/Creatinine Ratio 28.6 H (9.0-21.6) Calcium 7.8 L (7.9-10.9) mg/dL Calcium Adj for Albumin (8.4-10.2) mg/dL ALT (19-67) U/L - Exam Constitutional: Present: Alert, Oriented x3, No distress ENT Exam: Present: hearing grossly normal Respiratory: Present: lungs clear, normal breath sounds Cardiovascular/Chest: Present: regular rate, rhythm, no murmur Abdomen: Present: soft, nontender, nondistended Extremity: Present: non-tender, normal inspection Skin Exam: Present: normal color, warm/dry Neurologic: Present: no motor/sensory deficits, normal mood/affect Appearance: Present: appropriate appearance, appropriate insight Eye contact: Present: cooperative, good eye contact Thoughts: Present: normal thought pattern, normal mood /affect Assessment/Plan Plan Narrative: Overall patient is doing well today though still slightly weak but feels much better after having fluids. Potassium still elevated at 6.2, will give another 10 units of insulin as well as a dose of Kayexalate and a breathing treatment. We will give another bag of normal saline. Recheck BMP later this afternoon. Patient likely will need to stay another night while his potassium stabilizes and his kidneys improved. Holding spironolactone and chlorthalidone. Will restart lisinopril if his kidney function improves. HTN stable. Will continue to monitor Otherwise continue current treatment plan. Likely discharge home tomorrow as long as his labs improved. Patient feels well and has no concerns. Nurse to call questions or concerns. - Problems/Diagnosis (1) Renal failure (ARF), acute on chronic Problem: Acute (2) Hyperkalemia Problem: Acute (3) Diarrhea Problem: Acute (4) Generalized weakness Problem: Acute (5) Hypertension Problem: Chronic
[2021-02-03 07:48] LABS: Anion Gap 17.6 mmol/L (6.8-13.8); Calcium * 8.2 mg/dL (7.9-10.9); Carbon Dioxide 16.5 mmol/L (24-32.6); Estimated Creat Clear 42.9; Potassium 6.1 mmol/L (3.4-4.6)
[2021-02-03] MEDS: amLODIPine BESYLATE 5 MG TABLET PO SCH (09:09)
[2021-02-03] MEDS: ASPIRIN 81 MG TABLET.DR PO SCH (09:09)
[2021-02-03] MEDS: ATENOLOL 100 MG TABLET PO SCH (09:09)
[2021-02-03] MEDS ORDERED: INSULIN LISPRO 100 UNITS/ML VIAL SC ONE (10:10)
[2021-02-03] MEDS ORDERED: DEXTROSE 50%-WATER 50 ML SYRG IV ONE (10:12)
[2021-02-03] MEDS ORDERED: NORMAL SALINE 1,000 ML IV ONE (10:12)
[2021-02-03] MEDS ORDERED: FUROSEMIDE 10 MG/ML VIAL IV ONE (10:45)
[2021-02-03 17:04] LABS: Anion Gap 17.5 mmol/L (6.8-13.8); BUN/Creatinine Ratio 25.2 (9.0-21.6); Calcium * 7.9 mg/dL (7.9-10.9); Carbon Dioxide 19.9 mmol/L (24-32.6); Estimated Creat Clear 48.7; Potassium 5.4 mmol/L (3.4-4.6)
[2021-02-03] MEDS: ATENOLOL 50 MG TABLET PO SCH (17:05)
--- NOTE | 2021-02-03 17:49 | DS ---
(1) Renal failure (ARF), acute on chronic Problem: Acute (2) Hyperkalemia Problem: Acute (3) Diarrhea Problem: Acute (4) Generalized weakness Problem: Acute (5) Hypertension Problem: Chronic (6) Acute kidney injury superimposed on chronic kidney disease Problem: Resolved Date of Discharge:: 02/03/21 Hospital Course: Very pleasant 70-year-old male was admitted to the hospital for acute dehydration secondary to diarrhea which resulted in hyperkalemia. Patient has history of chronic kidney disease stage III and his creatinine upon admission was elevated and his GFR was 31. His baseline is around 1.6 with a GFR of close to 40. His potassium initially was 5.8 which trended up to 6.2 but then on day of discharge was down to 5.4. Patient was treated with 3 doses of insulin, 1 dose of Kayexalate, and 1 dose of IV Lasix which improved his potassium levels. Patient's kidney function is as good as its been in 2 years. His blood pressure also normalized even though we stopped the chlorthalidone and spironolactone. Patient feels much better is no longer having diarrhea and is ready go home. Patient takes good care of himself and will follow up as directed. Will repeat BMP in 2 days in the outpatient setting. We will send him home on 20 mg of Lasix daily for 3 days, patient advised to drink at least 80 ounces of water a day and top of his other fluids. No other changes to his chronic medications aside from the above-stated treatment plan. Patient is in good condition, agrees to follow-up as directed. His vital signs been stable otherwise and he looks good. Procedures Performed: none Results and Findings: Pending Mircobiology Results 02/01/21 15:31 Stool Stool Culture - Preliminary No Pathogens Isolated Lab Pending Results 02/01/21 10:26: WBC 8.1, RBC 5.29, Hgb 15.9, Hct 48.5, MCV 91.7, MCH 30.1, MCHC 32.8, RDW 13.2, Plt Count 208, MPV 11.2, Immature Gran % (Auto) 0.40, Immature Gran # (Auto) 0.03, Neutrophils % 75.7 H, Lymphocytes % 13.9 L, Monocytes % 7.9, Eosinophils % 1.5, Basophils % 0.6, Nucleated RBC % 0.0, Neutrophils # 6.1 H, Lymphocytes # 1.13 L, Monocytes # 0.6, Eosinophils # 0.1, Absolute Basophils 0.1 02/01/21 10:26: Sodium 131 L, Plasma Sodium 131, Potassium 6.2 H D, Chloride 100, Carbon Dioxide 19.7 L, Anion Gap 17.5 H, BUN 87 H D, Creatinine 3.03 H D, Est GFR (Non-Af Amer) 22 L D, BUN/Creatinine Ratio 28.7 H, Random Glucose 115 H, Calcium 8.9, Calcium Adj for Albumin 7.9 L, Total Bilirubin 0.3, AST 42, ALT 133 H, Alkaline Phosphatase 62, Total Protein 8.4 H, Albumin 4.8, Lipase 380 02/01/21 12:01: SARS-CoV-2 (PCR) Not detected 02/01/21 15:31: Stl C.difficile Tox A&B Negative 02/01/21 17:14: Sodium 132, Plasma Sodium 132, Potassium 6.1 H, Chloride 103, Carbon Dioxide 17.0 L, Anion Gap 18.1 H, BUN 84 H, Creatinine 2.67 H, Est GFR (Non-Af Amer) 25 L, BUN/Creatinine Ratio 31.5 H, Random Glucose 107, Calcium 8.1, Calcium Adj for Albumin 7.8 L, Total Bilirubin 0.3, AST 32, ALT 103 H, Alkaline Phosphatase 52, Total Protein 7.0, Albumin 4.0 02/01/21 22:00: Sodium 134, Plasma Sodium 134, Potassium 5.8 H, Chloride 104, Carbon Dioxide 16.9 L, Anion Gap 18.9 H, BUN 77 H, Creatinine 2.23 H D, Est GFR (Non-Af Amer) 31 L D, BUN/Creatinine Ratio 34.5 H, Random Glucose 94, Calcium 8.0, Calcium Adj for Albumin 7.9 L, Total Bilirubin 0.3, AST 26, ALT 91 H, Alkaline Phosphatase 52, Total Protein 6.6, Albumin 3.7 02/02/21 06:30: WBC 5.7 D, RBC 4.43 L, Hgb 13.5, Hct 40.5 L, MCV 91.4, MCH 30.5, MCHC 33.3, RDW 13.2, Plt Count 166, MPV 11.0, Immature Gran % (Auto) 0.40, Immature Gran # (Auto) 0.02, Neutrophils % 68.0, Lymphocytes % 17.4 L, Monocytes % 11.2 H, Eosinophils % 2.5, Basophils % 0.5, Nucleated RBC % 0.0, Neutrophils # 3.9, Lymphocytes # 0.99 L, Monocytes # 0.6, Eosinophils # 0.1, Absolute Basophils 0.0 02/02/21 06:30: Sodium 136, Plasma Sodium 136, Potassium 6.2 H, Chloride 108 H, Carbon Dioxide 15.0 L, Anion Gap 19.2 H, BUN 67 H, Creatinine 2.34 H, Est GFR (Non-Af Amer) 29 L, BUN/Creatinine Ratio 28.6 H, Random Glucose 101, Calcium 8.2, Calcium Adj for Albumin 8.0 L, Total Bilirubin 0.3, AST 40, ALT 107 H, Alkaline Phosphatase 50, Total Protein 6.8, Albumin 3.8 02/02/21 16:00: Sodium 137, Plasma Sodium 137, Potassium 5.9 H, Chloride 109 H, Carbon Dioxide 18.4 L, Anion Gap 15.5 H, BUN 53 H, Creatinine 1.85 H D, Est GFR (Non-Af Amer) 38 L D, BUN/Creatinine Ratio 28.6 H, Random Glucose 84, Calcium 7.8 L 02/03/21 07:15: Sodium 137, Plasma Sodium 137, Potassium 6.1 H, Chloride 109 H, Carbon Dioxide 16.5 L, Anion Gap 17.6 H, BUN 44 H, Creatinine 1.76 H, Est GFR (Non-Af Amer) 41 L, BUN/Creatinine Ratio 25.0 H, Random Glucose 111 H D, Calcium 8.2 02/03/21 16:50: Sodium 137, Plasma Sodium 137, Potassium 5.4 H, Chloride 105, Carbon Dioxide 19.9 L, Anion Gap 17.5 H, BUN 39 H, Creatinine 1.55 H, Est GFR (Non-Af Amer) 47 L, BUN/Creatinine Ratio 25.2 H, Random Glucose 98, Calcium 7.9 Discharge Location: Home Disposition: Home self-care Condition: Good Discharge Activity: Activity as tolerated Discharge Diet: Low Potassium Referrals: Ceferino Rainey DO [Primary Care Provider] - Two Weeks (Nurse visit in 2 days for BMP and blood pressure check since for discontinuing 2 of his blood pressure medicines.) Prescriptions (Any new or edited meds): Furosemide [Lasix] 20 mg PO DAILY #3 tab Transmission Status: Pending to [facility] #[id number] Complete Home Medications List: Complete Home Medication List: aspirin 81 mg tablet,delayed release 81 mg PO DAILY 05/27/19 Atenolol [Tenormin] 50 mg PO QPM 11/26/19 amlodipine 5 mg tablet 5 mg PO BID #60 tab 10/20/20 simvastatin 20 mg tablet 20 mg PO HS #30 tab 10/20/20 Atenolol [Tenormin] 100 mg PO DAILY 02/01/21 Lisinopril [Zestril] 20 mg PO HS 02/01/21 Furosemide [Lasix] 20 mg PO DAILY #3 tab 02/03/21
[2021-02-03 18:41] VITALS: BP 137/67
[2021-02-03] MEDS ORDERED: LISINOPRIL 20 MG TABLET PO SCH (21:00)
== END 2021-02-03 18:38 | disposition home or self-care (01) ==
LOC: ER 09:23 → MS 09:23
PROVIDERS: ADMIT Internal Medicine; ATTEND Family Medicine